=== PATIENT | male | born 1980 | race Caucasian/White ===

== ENCOUNTER 2018-08-22 11:11 | Inpatient (IN) | payer OTHER ==
[~2018-08-22] VITALS: Ht 167.6 cm; Wt 56.0 kg
[2018-08-22] VITALS (9 sets, daily range): BP systolic 101–127; BP diastolic 61–73; PULSE 61–82; RESP 13–26; Ht 167.6 cm; Wt 56.0 kg
[~2018-08-22 11:11] MED LIST: SULF1TAB31 PO
--- NOTE | 2018-08-22 11:23 | ERD ---
ER Documentation Chief Complaint Chief Complaint HPI This is a 38-year-old man with a history of end-stage kidney disease requiring h emodialysis today presents for right groin hemodialysis catheter replacement. 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 He has had no bleeding from the groin, no fevers or chills, no chest pain or shortness of breath. Patient was transported here by private ambulance from intermediate facility without complications. ROS All systems reviewed and are negative except as per history of present illness. Medications Home Meds Active Scripts Sulfamethoxazole/Trimethoprim* (Bactrim Ds* Tablet) 1 Each Tablet, 1 TAB PO BID for 7 Days, #14 TAB Prov:KISHOR SELF MD 05/21/18 Allergies Allergies: Coded Allergies: No Known Allergy (Unverified , 05/19/18) PMhx/Soc History of end-stage kidney disease hemodialysis dependent with a catheter in the right groin, anemia, history of drug abuse including heroin, hepatitis C, anxiety disorder History of Surgery: No Anesthesia Reaction: No Hx Neurological Disorder: No Hx Respiratory Disorders: No Hx Cardiac Disorders: Yes (HTN) Hx Psychiatric Problems: No Hx Alcohol Use: No Hx Substance Use: Yes (heroin) Hx Tobacco Use: Yes FmHx Family History: No diabetes Physical Exam Vitals Vital Signs Date Temp Pulse Resp B/P (MAP) Pulse Ox O2 O2 Flow FiO2 Time Delivery Rate 08/22/18 98.5 89 18 110/70 100 11:51 (83) 08/22/18 93 19 100 35 11:31 Per nurse's records Physical Exam Const: Anxious, afebrile Head: Atraumatic Eyes: Normal Conjunctiva ENT: Normal External Ears, Nose and Mouth. Neck: Full range of motion. No meningismus. Resp: Clear to auscultation bilaterally Cardio: Regular rate and rhythm, no murmurs Abd: Soft, non tender, non distended. Skin: No petechiae or rashes Back: No midline or flank tenderness Ext: No cyanosis, or edema Neur: Awake and alert, nonverbal due to tracheostomy tube able to write answers to questions and follow commands, moving all extremities, no facial asymmetry, pupils equal round reactive to light Psych: Anxious Result Diagram: 08/22/18 1146 08/22/18 1146 Results 24 hrs Laboratory Tests Test 08/22/18 11:46 White Blood Count 11.1 10^3/ul Red Blood Count 2.56 10^6/ul Hemoglobin 7.6 g/dl Hematocrit 23.9 % Mean Corpuscular Volume 93.4 fl Mean Corpuscular Hemoglobin 29.7 pg Mean Corpuscular Hemoglobin Concent 31.8 g/dl Red Cell Distribution Width 14.7 % Platelet Count 196 10^3/UL Mean Platelet Volume 8.9 fl Immature Granulocytes % 0.400 % Neutrophils % 75.7 % Lymphocytes % 12.3 % Monocytes % 7.6 % Eosinophils % 3.7 % Basophils % 0.3 % Nucleated Red Blood Cells % 0.0 /100WBC Immature Granulocytes # 0.040 10^3/ul Neutrophils # 8.4 10^3/ul Lymphocytes # 1.4 10^3/ul Monocytes # 0.8 10^3/ul Eosinophils # 0.4 10^3/ul Basophils # 0.0 10^3/ul Nucleated Red Blood Cells # 0.0 10^3/ul Prothrombin Time 14.3 Sec Prothrombin Time Ratio 1.1 INR International Normalized Ratio 1.10 Activated Partial Thromboplast Time 41.4 Sec Sodium Level 135 mmol/L Potassium Level 3.7 mmol/L Chloride Level 98 mmol/L Carbon Dioxide Level 22 mmol/L Anion Gap 15 Blood Urea Nitrogen 74 mg/dl Creatinine 7.51 mg/dl Est Glomerular Filtrat Rate mL/min 8 mL/min Glucose Level 96 mg/dl Calcium Level 9.8 mg/dl Total Bilirubin 0.0 mg/dl Direct Bilirubin 0.00 mg/dl Indirect Bilirubin 0.0 mg/dl Aspartate Amino Transf (AST/SGOT) 19 IU/L Alanine Aminotransferase (ALT/SGPT) 35 IU/L Alkaline Phosphatase 102 IU/L Troponin I Pending Total Protein 8.0 g/dl Albumin 3.8 g/dl Globulin 4.20 g/dl Albumin/Globulin Ratio 0.90 Lipase 46 U/L Procedures/MDM IV line was established patient was placed on telecommunication systems designer rhythm strip revealed a sinus rhythm at about 80 bpm with upright P and T waves. Patient was afebrile EKG performed, read by me: 86 bpm, normal sinus rhythm, normal axis, no acute ST segment changes, narrow QRS complex, with good R-wave progression in precordial leads. CBC reveals anemia with a hemoglobin of 7.6, electrolytes revealed elevated creatinine consistent with end-stage kidney disease, potassium was normal, INR was normal, I ordered hemodialysis catheter placement in radiology department under radiographic guidance Given the patient's level of anemia I ordered transfusion 2 units PRBC IV over 4 hours Patient will be admitted to [facility] for continued medical management and hemodialysis Departure Diagnosis: Primary Impression: Problem with dialysis access Encounter type: initial encounter Qualified Codes: T82.898A - Other specified complication of vascular prosthetic devices, implants and grafts, initial encounter Additional Impressions: End stage kidney disease Anemia Anemia type: unspecified type Qualified Codes: D64.9 - Anemia, unspecified Condition: Fair SOURAV CARBAJAL MD Aug 22, 2018 11:23
[2018-08-22] MEDS ORDERED: ALPR0.5T6 PO (13:20)
[2018-08-22] MEDS ORDERED: OLAN10TA7 PO (13:21)
[2018-08-22] MEDS ORDERED: ACET-2047 PO (13:21)
[2018-08-22] MEDS ORDERED: DOCU-144 PO (13:22)
[2018-08-22] MEDS ORDERED: FURO-110 PO (13:22)
[2018-08-22] MEDS ORDERED: MEGE40TA PO (13:22)
[2018-08-22] MEDS ORDERED: AMLO5TAB4 PO (13:23)
[2018-08-22] MEDS ORDERED: AMIN887L PO (13:24)
[2018-08-22] MEDS ORDERED: POLY17PO6 PO (13:25)
--- NOTE | 2018-08-22 13:53 | HP ---
ARVIN MAJOR 08/22/18 1353: Date/Time of Note Date/Time of Note DATE: 08/22/18 TIME: 13:48 Assessment/Plan VTE Prophylaxis Pharmacological prophylaxis: NA/contraindicated Pharm contraindication: bleeding Lines/Catheters IV Catheter Type (from Nrsg): Saline Lock Assessment/Plan Hospital Course 1. Malfunction right groin Spencer catheter. Skipped one session of hemodialysis 2. End end-stage renal disease on hemodialysis 3 times a week 3. VDRF with Tracheostomy 4. History of botulism 5. hx of drug abuse currently on methadone 6. hx if chronic kidney disease with last creatinine May 2018 3.4. 7. Severe normocytic anemia: Possibly secondary to chronic kidney disease, required blood transfusion 8. hypertension 9. Elevated wbc, source of infection is unknown, possibly lungs due to pt. respiratory insufficiency Assessment/Plan -per ER staff right groin Spencer cath. will be replaced -DVT prophylaxis SCD -GI prophylaxis famotidine twice daily -continue his current dose of methadone the nursing will send a request for the methadone clinic, check methadone patient is on - follow-up with anemia -pulmonary toilet - Result Diagram: 08/22/18 1146 08/22/18 1146 Results 24hrs Laboratory Tests Test 08/22/18 11:46 White Blood Count 11.1 #H Red Blood Count 2.56 #L Hemoglobin 7.6 L Hematocrit 23.9 L Mean Corpuscular Volume 93.4 Mean Corpuscular Hemoglobin 29.7 Mean Corpuscular Hemoglobin Concent 31.8 L Red Cell Distribution Width 14.7 H Platelet Count 196 # Mean Platelet Volume 8.9 Immature Granulocytes % 0.400 Neutrophils % 75.7 Lymphocytes % 12.3 L Monocytes % 7.6 Eosinophils % 3.7 Basophils % 0.3 Nucleated Red Blood Cells % 0.0 Immature Granulocytes # 0.040 H Neutrophils # 8.4 H Lymphocytes # 1.4 Monocytes # 0.8 Eosinophils # 0.4 Basophils # 0.0 Nucleated Red Blood Cells # 0.0 Prothrombin Time 14.3 Prothrombin Time Ratio 1.1 INR International Normalized Ratio 1.10 Activated Partial Thromboplast Time 41.4 H Sodium Level 135 Potassium Level 3.7 Chloride Level 98 Carbon Dioxide Level 22 Anion Gap 15 H Blood Urea Nitrogen 74 H Creatinine 7.51 H Est Glomerular Filtrat Rate mL/min 8 L Glucose Level 96 Calcium Level 9.8 Total Bilirubin 0.0 L Direct Bilirubin 0.00 Indirect Bilirubin 0.0 Aspartate Amino Transf (AST/SGOT) 19 Alanine Aminotransferase (ALT/SGPT) 35 Alkaline Phosphatase 102 Troponin I < 0.012 Total Protein 8.0 Albumin 3.8 Globulin 4.20 H Albumin/Globulin Ratio 0.90 Lipase 46 HPI/ROS Admit Date/Time Admit Date/Time Hx of Present Illness This is a 38-year-old man with a history of end-stage kidney disease, tracheostomy, history of drug abuse,, botulism, and anemia presents to ER for right groin hemodialysis catheter replacement. He has a tracheostomy tube in his mechanical ventilator dependent due to recent botulism and developed respiratory insufficiency. He has had no bleeding from the groin, no fevers or chills, no chest pain or shortness of breath. [facility]. ROS Subjective hx not possible: pt non-verbal PMH/Family/Social Past Medical History Medical History: hypertension, renal disease Coded Allergies: Sulfa (Sulfonamide Antibiotics) (Verified Allergy, Unknown, 08/22/18) Past Surgical History Past Surgical Hx: other (right groin Spencer cath, tracheostomy) Family History Significant Family History: lung disease, renal disease Social History Alcohol Use: occasionally Smoking Status: Never smoker Drug Use: heroin Exam/Review of Systems Vital Signs Vitals Vital Signs Date Temp Pulse Resp B/P (MAP) Pulse Ox O2 O2 Flow FiO2 Time Delivery Rate 08/22/18 73 19 100 35 13:27 08/22/18 98.5 110/70 11:51 (83) CHRISTOPHER GIRALDO MD 08/23/18 1626: Assessment/Plan Assessment/Plan Assessment/Plan seen and examined HD today: pt refused yesterday gram +bactermia> add vancomycin cw spencer ID consult will need permacath once bacterimia cleared Result Diagram: 08/22/18 1146 08/22/18 1146 PMH/Family/Social Past Medical History Coded Allergies: Sulfa (Sulfonamide Antibiotics) (Verified Allergy, Unknown, 08/22/18) ARVIN MAJOR Aug 22, 2018 13:53 CHRISTOPHER GIRALDO MD Aug 23, 2018 16:26
[2018-08-22] MEDS: AMLODIPINE 5 MG TAB PO SCH (14:00)
[2018-08-22] MEDS: DOCUSATE SODIUM 100 MG CAP PO SCH (14:00)
[2018-08-22] MEDS ORDERED: ACETAMINOPHEN 325 MG TAB PO PRN (14:00)
[2018-08-22] MEDS ORDERED: HEPARIN 1000 UNITS/ML 10 ML INJ CATHETER SCH (14:30)
[2018-08-22] MEDS ORDERED: LIDOCAINE 1% (MPF) 5 ML VIAL ONE (15:20)
[2018-08-22] MEDS ORDERED: HEPARIN 1000 UNITS/ML 10 ML INJ ONE (15:21)
--- NOTE | 2018-08-22 17:43 | NUR ---
HD order: Spoke to Margie sneed [facility]. Pt to have HD tomorrow. Confirmation # [id number]. Addendum: 08/22/18 at 1744 by JOSE MERLOS RN Pt requesting to have HD tomorrow, not today.
--- NOTE | 2018-08-22 18:15 | NUR ---
Received pt from ER. Pt refused photos. Has wounds that are healing, but no pressure ulcers. Pt stable. Call light in reach. IV intact. No complaints. AAOX4. Competent. Addendum: 08/22/18 at 2024 by JOSE MERLOS RN Ordered specialty air mattress. Will endorse to night CHON.
--- NOTE | 2018-08-22 20:18 | NUR ---
Pt signed consent for HD. Spoke to Dr. Elaine on phone. See new orders for diet and methadone. Faxed over methadone orders to in hospital pharmacy, per pharmacist request.
[2018-08-22] MEDS: POLYETHYLENE GLYCOL 17 GM PACKET PO SCH (21:00)
[2018-08-22] MEDS: FAMOTIDINE 20 MG INJ IV SCH (21:00)
[2018-08-22] MEDS: MEGESTROL 40 MG TAB PO SCH (21:00)
[2018-08-22] MEDS: ALPRAZOLAM 0.25 MG TAB PO PRN (22:39)
[2018-08-23] VITALS (35 sets, daily range): BP systolic 109–140; BP diastolic 67–99; PULSE 66–84; RESP 11–22
--- NOTE | 2018-08-23 06:06 | NUR ---
Redness and swollen noted around trach stoma,pt c/o of pain when suction,RN Tomasa aware. Wound consult is ordered.
--- NOTE | 2018-08-23 06:27 | NUR ---
EOSS PT AAO x4. No s/s of respiratory distress, pain or discomfort. Pt non-compliant with care. Pt refused to be reposition, wound assessment and care, bedtime medication and morning care. Pt stated " An assessment was performed by the other nurse". Explained to him that the assessment needs to be done every shift. Made charge nurse aware. Noted redness around trach site, pt refused picture. No acute changes. Provided education on pressure ulcer prevention. Pt verbalize understanding.
[2018-08-23] MEDS: DOCUSATE SODIUM 100 MG CAP PO SCH (08:52)
[2018-08-23] MEDS: METHADONE 10 MG TAB PO SCH (08:55)
[2018-08-23] MEDS: AMLODIPINE 5 MG TAB PO SCH (08:57)
[2018-08-23] MEDS: POLYETHYLENE GLYCOL 17 GM PACKET PO SCH ×3 (08:58→20:31)
[2018-08-23] MEDS: OLANZAPINE 5 MG TAB PO SCH (08:58)
[2018-08-23] MEDS: FUROSEMIDE 20 MG TAB PO SCH (09:00)
[2018-08-23] MEDS: MEGESTROL 40 MG TAB PO SCH ×3 (09:00→20:31)
--- NOTE | 2018-08-23 10:26 | NUR ---
Pt refused to be seen by wound consult nurse, and refused to be reposition , he is able to move extremities.
--- NOTE | 2018-08-23 11:20 | NUR ---
WOUND CONSULTATION NOTE: 38-year-old male with history of IV drug use and heroin use presented for central IV access exchange. Patient was recently admitted to [facility] in May 2018 and refused wound care assessment, wound care at that time was advised per photo documentation for skin popping abscesses due to IV drug use. On this presentation, patient has been declining multiple treatment and assessment modalities, as well as any photograph documentation for further assessment. On exam, patient is dressed in sweat pants, trach to vent, when asked to evaluate his wounds, patient wrote on paper "Later" Discussed with primary RN Angi, we will continue to follow. Please contact the wound care dept for any additional questions or encounters. Thank you Leanne Tan
--- NOTE | 2018-08-23 12:11 | PN ---
ARVIN MAJOR 08/23/18 1211: Date/Time of Note Date/Time of Note DATE: 08/23/18 TIME: 12:09 Assessment/Plan VTE Prophylaxis Risk score (from [facility])>0 risk: 2 SCD applied (from [facility]): No SCD contraindicated: patient refusal Pharmacological prophylaxis: NA/contraindicated Pharm contraindication: bleeding Lines/Catheters IV [facility]ter Type [facility]from [facility] Peripheral IV Assessment/Plan Hospital Course 1. Malfunction right groin Dorene catheter. Skipped one session of hemodialysis 2. End end-stage renal disease on hemodialysis 3 times a week 3. VDRF with Tracheostomy 4. History of botulism 5. hx of drug abuse currently on methadone 6. hx if chronic kidney disease with last creatinine May 2018 3.4. 7. Severe normocytic anemia: Possibly secondary to chronic kidney disease, required blood transfusion 8. hypertension 9. Elevated wbc, source of infection is unknown, possibly lungs due to pt. respiratory insufficiency Assessment/Plan -Dorene replaced -DVT prophylaxis SCD -GI prophylaxis famotidine twice daily -continue his current dose of methadone 70 mg - follow-up with anemia -pulmonary toilet Result Diagram: 08/23/18 1059 08/22/18 1146 Results 24hrs Laboratory Tests Test 08/23/18 10:59 White Blood Count 9.3 Red Blood Count 3.07 L Hemoglobin 9.4 #L Hematocrit 28.6 L Mean Corpuscular Volume 93.2 Mean Corpuscular Hemoglobin 30.6 Mean Corpuscular Hemoglobin Concent 32.9 Red Cell Distribution Width 14.9 H Platelet Count 228 Mean Platelet Volume 9.0 Immature Granulocytes % 0.500 H Neutrophils % 76.6 Lymphocytes % 13.3 L Monocytes % 6.3 Eosinophils % 3.0 Basophils % 0.3 Nucleated Red Blood Cells % 0.0 Immature Granulocytes # 0.050 H Neutrophils # 7.1 Lymphocytes # 1.2 Monocytes # 0.6 Eosinophils # 0.3 Basophils # 0.0 Nucleated Red Blood Cells # 0.0 Sodium Level 136 Potassium Level 4.4 Chloride Level 99 Carbon Dioxide Level 21 Anion Gap 16 H Blood Urea Nitrogen 81 H Creatinine 7.60 H Est Glomerular Filtrat Rate mL/min 8 L Glucose Level 103 Calcium Level 9.8 Subjective 24 Hr Interval Summary Gastrointestinal: pain (constipation 2 days) Exam/Review of Systems Vital Signs Vitals Vital Signs Date Temp Pulse Resp B/P (MAP) Pulse Ox O2 O2 Flow FiO2 Time Delivery Rate 08/23/18 98.0 75 20 128/74 95 11:39 (92) 08/23/18 35 09:45 08/23/18 Mechanical 03:56 Ventilator Intake and Output 08/22/18 08/22/18 08/23/18 1414:59 22:59 06:59 IntakeIntake Total 350 ml 800 ml OutputOutput Total 200 ml 300 ml BalanceBalance 350 ml -200 ml 500 ml Exam right IJ Q, cath Constitutional: alert, oriented Head: normocephalic Eyes: nl conjunctiva ENMT: nl external ears & nose Neck: other (tracheostomy) Respiratory: diminished breath sounds Cardiovascular: regular rate and rhythm Gastrointestinal: soft Medications Medications Current Medications Acetaminophen (Tylenol Tab) 650 mg Q8 PRN PO MILD PAIN(1-3)OR ELEVATED TEMP; Start 08/22/18 at 14:00 Alprazolam (Xanax) 0.5 mg Q4H PRN PO ANXIETY Last administered on 08/22/18at 22:39; Admin Dose 0.5 MG; Start 08/22/18 at 14:00 Amlodipine Besylate (Norvasc) 5 mg DAILY PO Last administered on 08/23/18at 08:57; Admin Dose 5 MG; Start 08/22/18 at 14:00 Docusate Sodium (Colace) 100 mg DAILY PO Last administered on 08/23/18at 08:52; Admin Dose 100 MG; Start 08/22/18 at 14:00 Furosemide (Lasix) 20 mg DAILY PO ; Start 08/23/18 at 09:00 Megestrol Acetate (Megace) 40 mg BID PO ; Start 08/22/18 at 21:00 Olanzapine (Zyprexa) 10 mg DAILY PO ; Start 08/23/18 at 09:00 Polyethylene Glycol (Miralax) 17 gm BID PO ; Start 08/22/18 at 21:00 Famotidine (Pepcid Iv) 20 mg Q24H IV ; Start 08/22/18 at 21:00 Heparin Sodium (Porcine) (Heparin (1000 Units/ml)) 4,000 unit AFTER DIALYSIS CATHETER ; Start 08/22/18 at 14:30 Methadone HCl (Methadone) 80 mg DAILY PO Last administered on 1/19/19at 08:55; Admin Dose 80 MG; Start 08/23/18 at 09:00 CHRISTOPHER GIRALDO MD 08/23/18 1630: Assessment/Plan Assessment/Plan Assessment/Plan pt seen and examined with PREPARATION DEPARTMENT SUPERVISOR HOLD DC PT HAS DORENE GRAM +BACTERMIA NEEDD IV VANCO Result Diagram: 08/23/18 1059 08/22/18 1146 ARVIN MAJOR Aug 23, 2018 12:11 CHRISTOPHER GIRALDO MD Aug 23, 2018 16:30
--- NOTE | 2018-08-23 12:14 | DS ---
Date/Time of Note Date/Time of Note DATE: 08/23/18 TIME: 12:14 Discharge Summary Admission/Discharge Info Admit Date/Time Aug 22, 2018 at 12:27 Discharge Date/Time Patient Condition: Stable Hx of Present Illness This is a 38-year-old man with a history of end-stage kidney disease, tracheostomy, history of drug abuse,, botulism, and anemia presents to ER for right groin hemodialysis catheter replacement. He has a tracheostomy tube in his mechanical ventilator dependent due to recent botulism and developed respiratory insufficiency. He has had no bleeding from the groin, no fevers or chills, no chest pain or shortness of breath. Patient was transfereed from [facility] facility without complications. Hospital Course 1. Malfunction right groin Sonny catheter. Skipped one session of hemodialysis 2. End end-stage renal disease on hemodialysis 3 times a week 3. VDRF with Tracheostomy 4. History of botulism 5. hx of drug abuse currently on methadone 6. hx if chronic kidney disease with last creatinine May 2018 3.4. 7. Severe normocytic anemia: Possibly secondary to chronic kidney disease, required blood transfusion 8. hypertension 9. Elevated wbc, source of infection is unknown, possibly lungs due to pt. r espiratory insufficiency Home Meds Reported Medications Polyethylene Glycol* (Miralax*) 17 Gm Powd.pack, 17 GM PO BID, #60 PACKET 08/22/18 Amino Acids/Protein Hydrolys (Pro-Stat 64 Liquid) 887 Ml Liquid, 30 ML PO BID 08/22/18 Amlodipine Besylate* (Norvasc*) 5 Mg Tablet, 5 MG PO DAILY, TAB HOLD FOR SBP<110 OR PRIOR TO HD TX 08/22/18 Docusate Sodium* (Colace*) 100 Mg Capsule, 100 MG PO DAILY, #30 CAP 08/22/18 Megestrol Acetate* (Megace*) 40 Mg Tab, 40 MG PO BID, TAB 08/22/18 Furosemide* (Lasix*) 20 Mg Tablet, 20 MG PO DAILY, TAB 08/22/18 Acetaminophen* (Acetaminophen*) 650 Mg Tablet, 650 MG PO Q8 PRN for PAIN AND OR ELEVATED TEMP, #30 TAB 08/22/18 Olanzapine* (Zyprexa*) 10 Mg Tablet, 10 MG PO DAILY, #30 TAB 08/22/18 Alprazolam* (Alprazolam*) 0.5 Mg Tablet, 0.5 MG PO Q4 PRN for ANXIETY, TAB 08/22/18 Discontinued Reported Medications Amlodipine Besylate* (Norvasc*) 5 Mg Tablet, 5 MG PO DAILY, TAB 08/22/18 Discontinued Scripts Sulfamethoxazole/Trimethoprim* (Bactrim Ds* Tablet) 1 Each Tablet, 1 TAB PO BID for 7 Days, #14 TAB Prov:KISHOR SELF MD 05/21/18 Follow-up Plan [facility] Primary Care Provider Care Physician No Primary Time spent on discharge: < 30 minutes Pending Labs Laboratory Tests Test 08/23/18 10:59 White Blood Count 9.3 10^3/ul (4.8-10.8) Red Blood Count 3.07 10^6/ul (4.70-6.10) Hemoglobin 9.4 g/dl (14.0-18.0) Hematocrit 28.6 % (42.0-52.0) Mean Corpuscular Volume 93.2 fl (82.0-101.0) Mean Corpuscular Hemoglobin 30.6 pg (29.0-33.0) Mean Corpuscular Hemoglobin Concent 32.9 g/dl (32.0-37.0) Red Cell Distribution Width 14.9 % (11.5-14.5) Platelet Count 228 10^3/UL (140-415) Mean Platelet Volume 9.0 fl (7.4-10.4) Immature Granulocytes % 0.500 % (0.001-0.429) Neutrophils % 76.6 % (39.0-77.0) Lymphocytes % 13.3 % (15.0-51.0) Monocytes % 6.3 % (0.0-11.0) Eosinophils % 3.0 % (0.0-7.0) Basophils % 0.3 % (0.0-2.0) Nucleated Red Blood Cells % 0.0 /100WBC (0.0-0.0) Immature Granulocytes # 0.050 10^3/ul (0.0-0.031) Neutrophils # 7.1 10^3/ul (1.6-7.5) Lymphocytes # 1.2 10^3/ul (0.8-2.9) Monocytes # 0.6 10^3/ul (0.3-0.9) Eosinophils # 0.3 10^3/ul (0.0-0.5) Basophils # 0.0 10^3/ul (0.0-0.1) Nucleated Red Blood Cells # 0.0 10^3/ul (0.0-0.0) Sodium Level 136 mmol/L (135-144) Potassium Level 4.4 mmol/L (3.5-5.1) Chloride Level 99 mmol/L (97-110) Carbon Dioxide Level 21 mmol/L (21-31) Anion Gap 16 (5-13) Blood Urea Nitrogen 81 mg/dl (7-20) Creatinine 7.60 mg/dl (0.61-1.24) Est Glomerular Filtrat Rate mL/min 8 mL/min (>60) Glucose Level 103 mg/dl (70-220) Calcium Level 9.8 mg/dl (8.4-10.2) ARVIN MAJOR Aug 23, 2018 12:14
[2018-08-23] MEDS: ALPRAZOLAM 0.25 MG TAB PO PRN ×3 (12:42→21:24)
--- NOTE | 2018-08-23 12:49 | NUR ---
TATY NOTE: DISCHARGE S/W pt SNF, [facility] (P:[phone], F:[phone]) regarding pt transfer back. Inquiry faxed per request of product safety administrator. Folding Machine Operator to f/u with taty. Hawk Shoemaker RN CM [phone] Addendum: 08/23/18 at 1326 by JEFRY SHOEMAKER CM Transportation arranged via [facility] (P:[phone]) placed on will-call (trip#[id number]) as pt will have dialysis prior to d/c. Addendum: 08/23/18 at 1416 by JEFRY SHOEMAKER CM [facility] informed of pt d/c after dialysis.
--- NOTE | 2018-08-23 13:22 | NUR ---
Nutrition consult: Admitted for ESKD/anemia. PMH end-stage kidney disease, tracheostomy, history of drug abuse, botulism, and anemia. Per pt, pt will be DC tonight. Pt appeared very cachetic but reported good appetite. Pt also wanted something to drink. RD provided renal oral supplements to help with wound healing. Rec adding MVI and vit C for wounds.
[2018-08-23] MEDS ORDERED: VANCOMYCIN IV PER PHARMACY XX SCH (16:30)
--- NOTE | 2018-08-23 16:47 | NUR ---
VANCOMYCIN PER RX 38 yo MALE Allergy: Sulfa 56 56KG CC: -Malfunction right groin Sonny catheter -Gram positive bacteremia Labs: WBC 9.3 BUN and creatinine 81/7.6 A/P: Vancomycin 1000mg x 1 after HD. Pharmacy will follow with subsequent doses.
[2018-08-23] MEDS ORDERED: HEPARIN 1000 UNITS/ML 10 ML INJ CATHETER ONE (18:30)
--- NOTE | 2018-08-23 18:50 | NUR ---
pt is a/o x4, cancel the discharge order , pt has blood culture positive therefore he needs get the antibiotic treatment . pt is doing the HD now , pt still refuse to be reposition and don't want to be check on his skin. no other complain at this time. resting in bed.
[2018-08-23] MEDS ORDERED: VANCOMYCIN 1 GM 250 ML IVPB ONE (20:00)
[2018-08-23] MEDS: FAMOTIDINE 20 MG INJ IV SCH (20:22)
[2018-08-23] MEDS ORDERED: BISACODYL 10 MG SUPP PR PRN (21:54)
[2018-08-24] VITALS (23 sets, daily range): BP systolic 107–150; BP diastolic 59–74; PULSE 63–96; RESP 10–21
--- NOTE | 2018-08-24 07:00 | NUR ---
Pt a/a/ox4, agitated and anxious. VS stable, afebrile. Xanax given x2. Pt refused to be assessed for the wound and dressing changed, non compliant. He throw things out when he could not wait for RT to change the tubing. Report given to CHON Perez am nurse and continue care plan.
[2018-08-24] MEDS: ALPRAZOLAM 0.25 MG TAB PO PRN ×3 (07:16→20:48)
[2018-08-24] MEDS: FUROSEMIDE 20 MG TAB PO SCH (09:00)
[2018-08-24] MEDS: AMLODIPINE 5 MG TAB PO SCH (09:00)
[2018-08-24] MEDS: OLANZAPINE 5 MG TAB PO SCH (09:00)
[2018-08-24] MEDS: DOCUSATE SODIUM 100 MG CAP PO SCH (09:00)
[2018-08-24] MEDS: POLYETHYLENE GLYCOL 17 GM PACKET PO SCH ×2 (09:00→20:47)
[2018-08-24] MEDS: MEGESTROL 40 MG TAB PO SCH ×2 (09:00→21:00)
[2018-08-24] MEDS: METHADONE 10 MG TAB PO SCH (09:06)
--- NOTE | 2018-08-24 14:02 | PN ---
Date/Time of Note Date/Time of Note DATE: 08/24/18 TIME: 13:41 Assessment/Plan VTE Prophylaxis Risk score (from Ns)>0 risk: 2 [place] [facility] [place] contraindicated: patient refusal Pharmacological prophylaxis: NA/contraindicated Pharm contraindication: bleeding Lines/Catheters IV Catheter Type (from [facility]): Peripheral IV Assessment/Plan Hospital Course 1. Malfunction right groin Sonny catheter. Skipped one session of hemodialysis 2. End end-stage renal disease on hemodialysis 3 times a week 3. VDRF with Tracheostomy 4. History of botulism 5. hx of drug abuse currently on methadone 6. hx if chronic kidney disease with last creatinine May 2018 3.4. 7. Severe normocytic anemia: Possibly secondary to chronic kidney disease, required blood transfusion 8. hypertension 9. SIRS, blood culture are gram positive, on Vancomycin 10 Hx of Hep. B Assessment/Plan -c/w vancomycin -pt need replacement of temp. cath on permanent after bl. cul are negative. -DVT prophylaxis SCD -GI prophylaxis famotidine twice daily -continue his current dose of methadone 80 mg - follow-up with anemia -pulmonary toilet Result Diagram: 08/23/18 1059 08/23/18 1059 Results 24hrs Laboratory Tests Test 08/23/18 17:12 Hepatitis B Surface Antigen NEGATIVE Hepatitis B Surface Antibody POSITIVE H Subjective 24 Hr Interval Summary Gastrointestinal: pain Exam/Review of Systems Vital Signs Vitals Vital Signs Date Temp Pulse Resp B/P (MAP) Pulse Ox O2 O2 Flow FiO2 Time Delivery Rate 08/24/18 63 12:31 08/24/18 98.1 18 119/72 99 12:15 (88) 08/24/18 30 11:35 08/23/18 Mechanical 17:54 Ventilator T Tube Intake and Output 08/23/18 08/23/18 08/24/18 1515:00 23:00 07:00 IntakeIntake Total 250 ml 550 ml 720 ml OutputOutput Total 400 ml 2600 ml 450 ml BalanceBalance -150 ml -2050 ml 270 ml Exam Constitutional: alert, oriented ENMT: other (tracheostomy) Neck: supple Cardiovascular: regular rate and rhythm Gastrointestinal: soft Genitourinary - Male: CVA tenderness; No nl penis, No nl scrotum, No discharge, No other Medications Medications Current Medications Acetaminophen (Tylenol Tab) 650 mg Q8 PRN PO MILD PAIN(1-3)OR ELEVATED TEMP; Start 08/22/18 at 14:00 Alprazolam (Xanax) 0.5 mg Q4H PRN PO ANXIETY Last administered on 08/24/18 07:16; Admin Dose 0.5 MG; Start 08/22/18 at 14:00 Amlodipine Besylate (Norvasc) 5 mg DAILY PO Last administered on 08/23/18 08:57; Admin Dose 5 MG; Start 08/22/18 at 14:00 Docusate Sodium (Colace) 100 mg DAILY PO Last administered on 08/23/18 08:52; Admin Dose 100 MG; Start 08/22/18 at 14:00 Furosemide (Lasix) 20 mg DAILY PO ; Start 08/23/18 at 09:00 Megestrol Acetate (Megace) 40 mg BID PO ; Start 08/22/18 at 21:00 Olanzapine (Zyprexa) 10 mg DAILY PO ; Start 08/23/18 at 09:00 Polyethylene Glycol (Miralax) 17 gm BID PO ; Start 08/22/18 at 21:00 Famotidine (Pepcid Iv) 20 mg Q24H IV Last administered on 08/23/18at 20:22; Admin Dose 20 MG; Start 08/22/18 at 21:00 Methadone HCl (Methadone) 80 mg DAILY PO Last administered on 08/24/18at 09:06; Admin Dose 80 MG; Start 08/23/18 at 09:00 Vancomycin HCl (Vanco Iv Per Pharmacy) VANCOMYCIN PER PHARMACY PER PROTOCOL XX ; Start 08/23/18 at 16:30 Bisacodyl (Dulcolax Supp) 10 mg DAILY PRN [place] CONSTIPATION Last administered on 08/23/18 22:03; Admin Dose 10 MG; Start 08/23/18 at 21:54 ARVIN MAJOR Aug 24, 2018 13:51
--- NOTE | 2018-08-24 14:46 | CONS ---
Date/Time of Note Date/Time of Note DATE: 08/24/18 TIME: 14:32 Assessment/Plan Assessment/Plan Hospital Course ID INITIAL NOTE => Please refer to Dr. Robles full consult note dictation pending code official from today. CURRENT ABX: DAY #Vanco IV 08/23/18 1059 08/23/18 1059 24H INTERVAL SUMMARY * No fevers, VSS, lethargic, generalized weakness, noncommunicative on the Vent MICRO * 08/22/18 (+)MRSA Nares * 08/22/18 BCX (+) BLOOD CULTURE Preliminary BCULT GRAM BOTTLE 1 Gram positive cocci in pairs and clusters . seen on gram stain of the broth Organism 1 COAGULASE NEGATIVE STAPH PHYSICAL EXAMINATION: GENERAL: Afebrile, VSS, lethargic w/generalized weakness HEENT: AT, NC, anicteric, moist oral membranes NECK: Supple, trach -> Secure to patient CHEST: Equal chest rise bilaterally, without dyspnea on observation HEART: Pulse RRR ABDOMEN: Soft EXTREMITIES: Warm, dry ==healing skin wounds SKIN: No rash, no diaphoresis ID ASSESSMENT 38 yo M admit with: 1. SIRS on admission w/Tmax 98.9, HR 95, B/P 90/60, WBC 11.1 due to #2 2. Suspected HD Line Sepsis w/ (+)CoNS * 08/22/18 BCX (+) BLOOD CULTURE Preliminary BCULT GRAM BOTTLE 1 Gram positive cocci in pairs and clusters . seen on gram stain of the broth Organism 1 COAGULASE NEGATIVE STAPH 3. Malfunction right groin Sonny catheter. Skipped one session of h emodialysis 4. End end-stage renal disease on hemodialysis 3 times a week 5. VDRF with Tracheostomy 5. History of botulism 6. 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 Severe normocytic anemia: Possibly secondary to chronic kidney disease, required blood transfusion 8. Hypertension 9. Former Tobaccoism 10. Healing skin abscesses (+)MRSA Nares ->Bactroban onboard ABX ALLERGIES: SULFA INVASIVES: PIV CURRENT ABX: DAY #= Vanco IV ID RECOMMENDATIONS/PLAN: Continue Vanco IV -- Repeat BCx next HD . Result Diagram: 08/23/18 1059 08/23/18 1059 Results 24hrs Laboratory Tests Test 08/23/18 17:12 Hepatitis B Surface Antigen NEGATIVE Hepatitis B Surface Antibody POSITIVE H Consultation Date/Type/Reason Admit Date/Time Aug 22, 2018 at 12:27 Initial Consult Date Exam/Review of Systems Vital Signs Vitals Vital Signs Date Temp Pulse Resp B/P (MAP) Pulse Ox O2 O2 Flow FiO2 Time Delivery Rate 08/24/18 63 12:31 08/24/18 98.1 18 119/72 99 12:15 (88) 08/24/18 30 11:35 08/23/18 Mechanical 17:54 Ventilator T Tube Intake and Output 08/23/18 08/23/18 08/24/18 1515:00 23:00 07:00 IntakeIntake Total 250 ml 550 ml 720 ml OutputOutput Total 400 ml 2600 ml 450 ml BalanceBalance -150 ml -2050 ml 270 ml Medications Medications Current Medications Acetaminophen (Tylenol Tab) 650 mg Q8 PRN PO MILD PAIN(1-3)OR ELEVATED TEMP; Start 08/22/18 at 14:00 Alprazolam (Xanax) 0.5 mg Q4H PRN PO ANXIETY Last administered on 08/24/18at 13:56; Admin Dose 0.5 MG; Start 08/22/18 at 14:00 Amlodipine Besylate (Norvasc) 5 mg DAILY PO Last administered on 08/23/18at 08:57; Admin Dose 5 MG; Start 08/22/18 at 14:00 Docusate Sodium (Colace) 100 mg DAILY PO Last administered on 08/23/18at 08:52; Admin Dose 100 MG; Start 08/22/18 at 14:00 Furosemide (Lasix) 20 mg DAILY PO ; Start 08/23/18 at 09:00 Megestrol Acetate (Megace) 40 mg BID PO ; Start 08/22/18 at 21:00 Olanzapine (Zyprexa) 10 mg DAILY PO ; Start 08/23/18 at 09:00 Polyethylene Glycol (Miralax) 17 gm BID PO ; Start 08/22/18 at 21:00 Methadone HCl (Methadone) 80 mg DAILY PO Last administered on 08/24/18at 09:06; Admin Dose 80 MG; Start 08/23/18 at 09:00 Vancomycin HCl (Vanco Iv Per Pharmacy) VANCOMYCIN PER PHARMACY PER PROTOCOL XX ; Start 08/23/18 at 16:30 Bisacodyl (Dulcolax Supp) 10 mg DAILY PRN ID CONSTIPATION Last administered on 08/23/18at 22:03; Admin Dose 10 MG; Start 08/23/18 at 21:54 Epoetin Aramis (Epogen (Esrd)) 4,000 units MoWeFr@17 SC ; Start 08/25/18 at 17:00 Famotidine (Pepcid) 20 mg DAILY PO ; Start 08/25/18 at 09:00 Mupirocin (Bactroban) 1 applic BID TOP ; Start 08/24/18 at 21:00 EMILIA MADERA NP Aug 24, 2018 14:42
--- NOTE | 2018-08-24 15:33 | NUR ---
Got a Call from [facility] to get blood culture from Pt's dialysis line as well, however per policy RNs are not able to draw blood from the HD line.
--- NOTE | 2018-08-24 15:39 | NUR ---
Called [facility] for HD 08/25/18, confirmation number is [id number]
--- NOTE | 2018-08-24 15:50 | CONS ---
DATE OF ADMISSION: 08/22/2018 DATE OF CONSULTATION: 08/24/2018 TYPE OF CONSULTATION: Infectious Disease. REASON FOR CONSULTATION: Antibiotic management. HISTORY OF PRESENT ILLNESS: Parminder Donaldson is a 38-year-old male with numerous problems including end -stage renal disease who comes in with a number of problems and is being seen for antibiotic manageme nt. Past problems include: 1. End-stage renal disease on hemodialysis with a catheter in the right groin. 2. History of drug abuse including heroin. 3. Hepatitis C. 4. Anemia. 5. Hypertension. 6. Anxiety disorder. 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 On admission , his white count was 11.1, H and H 7.6 and 23.9, platelet count 196,000. BUN and creatinine 74/7.51 . An IV line was established. His white count was 11.1 with 76% polys. His blood culture grew out coag-negative staph. He had uncomplicated placement of a 15 cm Sonny catheter in the right interna l jugular vein. As noted, there was malfunction of the right groin catheter, a history of drug abuse and is currently on methadone, quit and replaced DVT prophylaxis. The patient has mechanical ventil ator dependent due to recent botulism and developed respiratory insufficiency and he was transferred from assisted facility as noted. PAST MEDICAL HISTORY: Operations as outlined. FAMILY HISTORY: Noncontributory. SOCIAL HISTORY: He does not smoke, drink or abuse drugs. ALLERGIES: NONE TO PENICILLIN, SULFA OR FOODS. MEDICATIONS: Per chart. REVIEW OF SYSTEMS: As per HPI. PHYSICAL EXAMINATION: GENERAL: The patient is anxious, afebrile. SKIN: Without generalized rash. HEENT: Within normal limits. NECK: With tracheostomy in place. HEART: Without murmur or gallop. ABDOMEN: Soft, nontender, without organosplenomegaly or masses. EXTREMITIES: Without cyanosis, clubbing, or edema. RECTAL AND GENITAL: Deferred. NEUROLOGIC: No focal neurological abnormality. ANCILLARY LABORATORY DATA: White count on the was 9.3. IMPRESSION AND PLAN: We will continue him on vancomycin. He probably had sepsis to line sepsis seco ndary to the other catheter, which was removed, and he should probably be treated for a 2-week course on dialysis with vancomycin. I will dictate my findings to the hospitalist, actually to probably Dr Luis Elaine. Dictated By: RIP ESTEVEZ MD, JD/AIYANA Conf#: [id number] DID#: [id number] CC: CHRISTOPHER ELAINE;*EndCC*
[2018-08-24] MEDS ORDERED: HEPARIN 1000 UNITS/ML 10 ML INJ CATHETER SCH (16:00)
--- NOTE | 2018-08-24 18:16 | NUR ---
EOSS: Pt is stable, VS are WNL. Pt is noncompliant, refusing wound care , medication, turning. anxious most of the time. Low air loss mattress was placed. Will endorse the care to cobol programmer nurse.
[2018-08-24] MEDS: MUPIROCIN 2% 22 GM OINT TOP SCH (20:48)
[2018-08-25] VITALS (22 sets, daily range): BP systolic 120–140; BP diastolic 67–85; PULSE 59–88; RESP 12–23
[2018-08-25] MEDS: ALPRAZOLAM 0.25 MG TAB PO PRN ×3 (05:33→21:04)
--- NOTE | 2018-08-25 05:47 | NUR ---
EOSS: Pt A&O x 4. VSS. Xanax administered X 2 for anxiety. Patienti is refusing wound assessment, wound treatment, and WCN participation. No current s/s of distress, resting in bed comfortably. Fall precautions maintained. Hourly rounding performed. Call light within reach; instructed pt to call for assistance as needed. Pt clean and dry; all needs and concerns attended to. Will endorse pt to AM RN for continuity of care.
[2018-08-25] MEDS: FAMOTIDINE 20 MG TAB PO SCH (09:00)
[2018-08-25] MEDS: OLANZAPINE 5 MG TAB PO SCH (09:00)
[2018-08-25] MEDS: MEGESTROL 40 MG TAB PO SCH ×2 (09:00→21:00)
[2018-08-25] MEDS: FUROSEMIDE 20 MG TAB PO SCH (09:00)
[2018-08-25] MEDS: AMLODIPINE 5 MG TAB PO SCH (09:00)
[2018-08-25] MEDS: DOCUSATE SODIUM 100 MG CAP PO SCH (09:20)
[2018-08-25] MEDS: POLYETHYLENE GLYCOL 17 GM PACKET PO SCH ×2 (09:20→21:00)
[2018-08-25] MEDS: MUPIROCIN 2% 22 GM OINT TOP SCH ×2 (09:20→21:00)
[2018-08-25] MEDS: METHADONE 10 MG TAB PO SCH (09:20)
--- NOTE | 2018-08-25 10:00 | NUR ---
Pt refusing skin assessment, repositioning, and refusing skin pictures. Aggressive and defensive about talking about his skin.
--- NOTE | 2018-08-25 11:20 | PN ---
Date/Time of Note Date/Time of Note DATE: 08/25/18 TIME: 11:18 Assessment/Plan VTE Prophylaxis Risk score (from Ns)>0 risk: 2 [place] [facility] [place] contraindicated: low risk/ambulating Pharmacological prophylaxis: NA/contraindicated Pharm contraindication: low risk/ambulating Lines/Catheters IV Catheter Type (from [facility]): Peripheral IV Urinary Cath still in place: No Assessment/Plan Hospital Course 38 y/o with 1. Malfunction right groin Spencer catheter. Skipped one session of hemodialysis nows with CONS bacterimia 2. End end-stage renal disease on hemodialysis 3 times a week 3. VDRF with Tracheostomy 4. History of botulism 5. hx of drug abuse currently on methadone 6. hx if chronic kidney disease with last creatinine May 2018 3.4. 7. Severe normocytic anemia: Possibly secondary to chronic kidney disease, re quired blood transfusion 8. hypertension 9. SIRS, blood culture are gram positive, on Vancomycin 10 Hx of Hep. B Assessment/Plan -c/w vancomycin -pt need replacement of temp. cath on permanent after bl. cul are negative. possibly tmw?? -DVT prophylaxis SCD -GI prophylaxis famotidine twice daily -continue his current dose of methadone 80 mg - f/u id Recs Result Diagram: 08/25/18 0557 08/23/18 1059 Results 24hrs Laboratory Tests Test 08/25/18 05:57 White Blood Count 7.6 Red Blood Count 3.11 L Hemoglobin 9.5 L Hematocrit 29.5 L Mean Corpuscular Volume 94.9 Mean Corpuscular Hemoglobin 30.5 Mean Corpuscular Hemoglobin Concent 32.2 Red Cell Distribution Width 14.7 H Platelet Count 214 Mean Platelet Volume 9.8 Immature Granulocytes % 1.300 H Neutrophils % 59.3 Lymphocytes % 23.6 Monocytes % 11.1 H Eosinophils % 4.3 Basophils % 0.4 Nucleated Red Blood Cells % 0.0 Immature Granulocytes # 0.100 H Neutrophils # 4.5 Lymphocytes # 1.8 Monocytes # 0.8 Eosinophils # 0.3 Basophils # 0.0 Nucleated Red Blood Cells # 0.0 Subjective 24 Hr Interval Summary Free Text/Dictation pt refused hd today repeat bld cx pending Exam/Review of Systems Vital Signs Vitals Vital Signs Date Temp Pulse Resp B/P (MAP) Pulse Ox O2 O2 Flow FiO2 Time Delivery Rate 08/25/18 76 13 100 30 09:53 08/25/18 98.0 122/71 08:12 (88) 08/23/18 Mechanical 17:54 Ventilator T Tube Intake and Output 08/24/18 08/24/18 08/25/18 1515:00 23:00 07:00 IntakeIntake Total 800 ml 900 ml OutputOutput Total 600 ml 700 ml BalanceBalance 200 ml 200 ml Exam Constitutional: alert, oriented ENMT: other (tracheostomy) Neck: supple Cardiovascular: regular rate and rhythm Gastrointestinal: soft Genitourinary - Male: CVA tenderness; No nl penis, No nl scrotum, No discharge, No other rt neck spencer Medications Medications Current Medications Acetaminophen (Tylenol Tab) 650 mg Q8 PRN PO MILD PAIN(1-3)OR ELEVATED TEMP; Start 08/22/18 at 14:00 Alprazolam (Xanax) 0.5 mg Q4H PRN PO ANXIETY Last administered on 08/25/18at 05:33; Admin Dose 0.5 MG; Start 08/22/18 at 14:00 Amlodipine Besylate (Norvasc) 5 mg DAILY PO Last administered on 08/23/18at 08:57; Admin Dose 5 MG; Start 08/22/18 at 14:00 Docusate Sodium (Colace) 100 mg DAILY PO Last administered on 08/25/18at 09:20; Admin Dose 100 MG; Start 08/22/18 at 14:00 Furosemide (Lasix) 20 mg DAILY PO ; Start 08/23/18 at 09:00 Megestrol Acetate (Megace) 40 mg BID PO ; Start 08/22/18 at 21:00 Olanzapine (Zyprexa) 10 mg DAILY PO ; Start 08/23/18 at 09:00 Polyethylene Glycol (Miralax) 17 gm BID PO Last administered on 08/25/18at 09:20; Admin Dose 17 GM; Start 08/22/18 at 21:00 Methadone HCl (Methadone) 80 mg DAILY PO Last administered on 08/25/18at 09:20; Admin Dose 80 MG; Start 08/23/18 at 09:00 Vancomycin HCl (Vanco Iv Per Pharmacy) VANCOMYCIN PER PHARMACY PER PROTOCOL XX ; Start 08/23/18 at 16:30 Bisacodyl (Dulcolax Supp) 10 mg DAILY PRN [place] CONSTIPATION Last administered on 08/23/18at 22:03; Admin Dose 10 MG; Start 08/23/18 at 21:54 Epoetin Aramis (Epogen (Esrd)) 4,000 units MoWeFr@17 SC ; Start 08/25/18 at 17:00 Famotidine (Pepcid) 20 mg DAILY PO ; Start 08/25/18 at 09:00 Mupirocin (Bactroban) 1 applic BID TOP Last administered on 08/25/18at 09:20; Admin Dose 1 APPLIC; Start 08/24/18 at 21:00 Heparin Sodium (Porcine) (Heparin (1000 Units/ml)) 4,000 unit AFTER DIALYSIS CATHETER ; Start 08/24/18 at 16:00 CHRISTOPHER GIRALDO MD Aug 25, 2018 11:20
--- NOTE | 2018-08-25 14:42 | CONS ---
Date/Time of Note Date/Time of Note DATE: 08/25/18 TIME: 14:38 Assessment/Plan Assessment/Plan Hospital Course ID INITIAL NOTE CURRENT ABX: DAY #Vanco IV 24H INTERVAL SUMMARY * Napping with computer in his lap -- awakens, no complaints, feels OK, No fev ers, VSS, lethargic, generalized weakness * Case D/W Dr. Elaine -- both BCx samples were taken from peripheral antecubital site == NO BCX obtained from HD cath that was REMOVED PRIOR TO THE BCX == Henc e BCx (+)CoNS 1/2 bottles is likely a SKIN CONTAMINANT. Patient may proceed to placement of new PermCATH MICRO * 08/22/18 (+)MRSA Nares * 08/22/18 BCX (+) BLOOD CULTURE Preliminary BCULT GRAM BOTTLE 1 Gram positive cocci in pairs and clusters . seen on gram stain of the broth Organism 1 COAGULASE NEGATIVE STAPH PHYSICAL EXAMINATION: GENERAL: Afebrile, VSS, lethargic w/generalized weakness HEENT: AT, NC, anicteric, moist oral membranes NECK: Supple, trach -> Secure to patient CHEST: Equal chest rise bilaterally, without dyspnea on observation HEART: Pulse RRR ABDOMEN: Soft EXTREMITIES: Warm, dry ==healing skin wounds SKIN: No rash, no diaphoresis ID ASSESSMENT 38 yo M admit with: 1. SIRS on admission w/Tmax 98.9, HR 95, B/P 90/60, WBC 11.1 due to #2 2. Suspected HD Line Sepsis w/ (+)CoNS * 08/22/18 BCX (+) BLOOD CULTURE Preliminary BCULT GRAM BOTTLE 1 Gram positive cocci in pairs and clusters . seen on gram stain of the broth Organism 1 COAGULASE NEGATIVE STAPH 3. Malfunction right groin Sonny catheter. Skipped one session of hemodialy sis 4. End end-stage renal disease on hemodialysis 3 times a week 5. VDRF with Tracheostomy 5. History of botulism 6. 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 Severe normocytic anemia: Possibly secondary to chronic kidney disease, required blood transfusion 8. Hypertension 9. Former Tobaccoism 10. Healing skin abscesses (+)MRSA Nares ->Bactroban onboard ABX ALLERGIES: SULFA INVASIVES: PIV CURRENT ABX: DAY #= Vanco IV ID RECOMMENDATIONS/PLAN: Continue Vanco IV -- Repeat BCx next HD Case D/W Dr. Elaine -- both BCx samples were taken from peripheral antecubital site == NO BCX obtained from HD cath that was REMOVED PRIOR TO THE BCX == Hence BCx (+)CoNS 1/2 bottles is likely a SKIN CONTAMINANT. Patient may proceed to placement of new PermCATH . Result Diagram: 08/25/18 0557 08/25/18 1110 Results 24hrs Laboratory Tests Test 08/25/18 05:57 08/25/18 11:10 White Blood Count 7.6 Red Blood Count 3.11 L Hemoglobin 9.5 L Hematocrit 29.5 L Mean Corpuscular Volume 94.9 Mean Corpuscular Hemoglobin 30.5 Mean Corpuscular Hemoglobin Concent 32.2 Red Cell Distribution Width 14.7 H Platelet Count 214 Mean Platelet Volume 9.8 Immature Granulocytes % 1.300 H Neutrophils % 59.3 Lymphocytes % 23.6 Monocytes % 11.1 H Eosinophils % 4.3 Basophils % 0.4 Nucleated Red Blood Cells % 0.0 Immature Granulocytes # 0.100 H Neutrophils # 4.5 Lymphocytes # 1.8 Monocytes # 0.8 Eosinophils # 0.3 Basophils # 0.0 Nucleated Red Blood Cells # 0.0 Sodium Level 139 Potassium Level 3.9 Chloride Level 100 Carbon Dioxide Level 27 Anion Gap 12 Blood Urea Nitrogen 70 H Creatinine 5.15 H Est Glomerular Filtrat Rate mL/min 13 L Glucose Level 107 Calcium Level 9.9 Random Vancomycin Level 16.0 Consultation Date/Type/Reason Admit Date/Time Aug 25, 2018 at 09:51 Initial Consult Date Exam/Review of Systems Vital Signs Vitals Vital Signs Date Temp Pulse Resp B/P (MAP) Pulse Ox O2 O2 Flow FiO2 Time Delivery Rate 08/25/18 75 18 100 30 13:38 08/25/18 98.2 120/75 11:37 (90) 08/23/18 Mechanical 17:54 Ventilator T Tube Intake and Output 08/24/18 08/24/18 08/25/18 1515:00 23:00 07:00 IntakeIntake Total 800 ml 900 ml OutputOutput Total 600 ml 700 ml BalanceBalance 200 ml 200 ml Medications Medications Current Medications Acetaminophen (Tylenol Tab) 650 mg Q8 PRN PO MILD PAIN(1-3)OR ELEVATED TEMP; Start 08/22/18 at 14:00 Alprazolam (Xanax) 0.5 mg Q4H PRN PO ANXIETY Last administered on 08/25/18at 05:33; Admin Dose 0.5 MG; Start 08/22/18 at 14:00 Amlodipine Besylate (Norvasc) 5 mg DAILY PO Last administered on 08/23/18at 08:57; Admin Dose 5 MG; Start 08/22/18 at 14:00 Docusate Sodium (Colace) 100 mg DAILY PO Last administered on 08/25/18at 09:20; Admin Dose 100 MG; Start 08/22/18 at 14:00 Furosemide (Lasix) 20 mg DAILY PO ; Start 08/23/18 at 09:00 Megestrol Acetate (Megace) 40 mg BID PO ; Start 08/22/18 at 21:00 Olanzapine (Zyprexa) 10 mg DAILY PO ; Start 08/23/18 at 09:00 Polyethylene Glycol (Miralax) 17 gm BID PO Last administered on 08/25/18at 09:20; Admin Dose 17 GM; Start 08/22/18 at 21:00 Methadone HCl (Methadone) 80 mg DAILY PO Last administered on 08/25/18at 09:20; Admin Dose 80 MG; Start 08/23/18 at 09:00 Vancomycin HCl (Vanco Iv Per Pharmacy) VANCOMYCIN PER PHARMACY PER PROTOCOL XX ; Start 08/23/18 at 16:30 Bisacodyl (Dulcolax Supp) 10 mg DAILY PRN [place] CONSTIPATION Last administered on 08/23/18at 22:03; Admin Dose 10 MG; Start 08/23/18 at 21:54 Epoetin Aramis (Epogen (Esrd)) 4,000 units MoWeFr@17 SC ; Start 08/25/18 at 17:00 Famotidine (Pepcid) 20 mg DAILY PO ; Start 08/25/18 at 09:00 Mupirocin (Bactroban) 1 applic BID TOP Last administered on 08/25/18at 09:20; Admin Dose 1 APPLIC; Start 08/24/18 at 21:00 Heparin Sodium (Porcine) (Heparin (1000 Units/ml)) 4,000 unit AFTER DIALYSIS CATHETER ; Start 08/24/18 at 16:00 EMILIA MADERA NP Aug 25, 2018 14:42
[2018-08-25] MEDS: EPOETIN 4000 UNITS/1 ML INJ (ESRD) SC SCH (17:00)
--- NOTE | 2018-08-25 17:59 | NUR ---
VANCOMYCIN PER PHARMACY Problem List: SIRS 2/2 CONS BACTEREMIA FROM HD CATH, ESRD-HD, VDRF, H/O BOTULISM, FORMER IV HEROIN USER - HEP C+, HEALING SKIN ABSCESSES Current ABXs: VANCOMYCIN Levels/Significant Labs: 08/25 RANDOM VANCOMYCIN = 16.0 Comments/Plan: WILL INITIATE VANCOMYCIN AT 750 MG Q96H
[2018-08-25] MEDS ORDERED: VANCOMYCIN 750 MG (PMX) 250 ML IVPB SCH (21:00)
[2018-08-26] VITALS (24 sets, daily range): BP systolic 121–175; BP diastolic 68–92; PULSE 62–76; RESP 10–20
[2018-08-26] MEDS: ALPRAZOLAM 0.25 MG TAB PO PRN ×3 (05:13→22:42)
--- NOTE | 2018-08-26 05:52 | NUR ---
End of shift notes: Receive pt awake on bed. A/Ox 3-4; SR on the monitor.Pt refused repositioning. Suctioning done PRN; Denies pain in my shift, just asking for his xanax on time. Needs attended. Keep safe and free from injury. Still for SNIF placement. Will continue to monitor.Endorsed to day shift.
[2018-08-26] MEDS: METHADONE 10 MG TAB PO SCH (08:42)
[2018-08-26] MEDS: MEGESTROL 40 MG TAB PO SCH ×2 (09:00→21:00)
[2018-08-26] MEDS: FAMOTIDINE 20 MG TAB PO SCH (09:00)
[2018-08-26] MEDS: MUPIROCIN 2% 22 GM OINT TOP SCH ×2 (09:00→21:00)
[2018-08-26] MEDS: AMLODIPINE 5 MG TAB PO SCH (09:00)
[2018-08-26] MEDS: POLYETHYLENE GLYCOL 17 GM PACKET PO SCH ×2 (09:00→21:00)
[2018-08-26] MEDS: FUROSEMIDE 20 MG TAB PO SCH (09:00)
[2018-08-26] MEDS: OLANZAPINE 5 MG TAB PO SCH (09:00)
[2018-08-26] MEDS: DOCUSATE SODIUM 100 MG CAP PO SCH (09:00)
--- NOTE | 2018-08-26 09:00 | NUR ---
[facility] BEDSIDE to do Dialysis, pt refusing at the current time. Wants to do Dialysis later in the afternoon.
--- NOTE | 2018-08-26 10:00 | NUR ---
Pt refusing all medications, only wants methadone. Dr. Elaine made aware.
--- NOTE | 2018-08-26 10:42 | PN ---
Date/Time of Note Date/Time of Note DATE: 08/26/18 TIME: 10:41 Assessment/Plan VTE Prophylaxis Risk score (from Ns)>0 risk: 1 SCD applied (from Ns): No SCD contraindicated: low risk/ambulating Pharmacological prophylaxis: NA/contraindicated Pharm contraindication: low risk/ambulating Lines/Catheters IV [facility]from [facility] spencer Urinary Cath still in place: No Assessment/Plan Hospital Course 38 y/o with 1. Malfunction right groin Spencer catheter. Skipped one session of hemodialysis nows with CONS bacterimia ? contaminant 2. End end-stage renal disease on hemodialysis 3 times a week 3. VDRF with Tracheostomy 4. History of botulism 5. hx of drug abuse currently on methadone 6. hx if chronic kidney disease with last creatinine May 2018 3.4. 7. Severe normocytic anemia: Possibly secondary to chronic kidney disease, required blood transfusion 8. hypertension 9. SIRS, blood culture are gram positive, on Vancomycin 10 Hx of Hep. B Assessment/Plan -c/w vancomycin -IR put in a permacath placement tomorrow - hd today -DVT prophylaxis SCD -GI prophylaxis famotidine twice daily -continue his current dose of methadone 80 mg - f/u id Recs - bld cx neg so far Result Diagram: 08/25/18 0557 08/25/18 1110 Results 24hrs Laboratory Tests Test 08/25/18 11:10 Sodium Level 139 Potassium Level 3.9 Chloride Level 100 Carbon Dioxide Level 27 Anion Gap 12 Blood Urea Nitrogen 70 H Creatinine 5.15 H Est Glomerular Filtrat Rate mL/min 13 L Glucose Level 107 Calcium Level 9.9 Random Vancomycin Level 16.0 Subjective 24 Hr Interval Summary Free Text/Dictation he refused hemodialysis yesterday Plan for HD today Cultures negative so far Exam/Review of Systems Vital Signs Vitals Vital Signs Date Temp Pulse Resp B/P (MAP) Pulse Ox O2 O2 Flow FiO2 Time Delivery Rate 08/26/18 74 08:00 08/26/18 98.6 20 129/89 96 Mechanical 07:45 (102) Ventilator 08/26/18 30 05:27 Intake and Output 08/25/18 08/25/18 08/26/18 1515:00 23:00 07:00 IntakeIntake Total 1750 ml 1325 ml OutputOutput Total 1025 ml 850 ml BalanceBalance 725 ml 475 ml Exam Constitutional: alert, oriented ENMT: other (tracheostomy) Neck: supple Cardiovascular: regular rate and rhythm Gastrointestinal: soft Genitourinary - Male: CVA tenderness; No nl penis, No nl scrotum, No discharge, No other rt neck spencer Medications Medications Current Medications Acetaminophen (Tylenol Tab) 650 mg Q8 PRN PO MILD PAIN(1-3)OR ELEVATED TEMP; Start 08/22/18 at 14:00 Alprazolam (Xanax) 0.5 mg Q4H PRN PO ANXIETY Last administered on 08/26/18at 05:13; Admin Dose 0.5 MG; Start 08/22/18 at 14:00 Amlodipine Besylate (Norvasc) 5 mg DAILY PO Last administered on 08/23/18at 08:57; Admin Dose 5 MG; Start 08/22/18 at 14:00 Docusate Sodium (Colace) 100 mg DAILY PO Last administered on 08/25/18at 09:20; Admin Dose 100 MG; Start 08/22/18 at 14:00 Furosemide (Lasix) 20 mg DAILY PO ; Start 08/23/18 at 09:00 Megestrol Acetate (Megace) 40 mg BID PO ; Start 08/22/18 at 21:00 Olanzapine (Zyprexa) 10 mg DAILY PO ; Start 08/23/18 at 09:00 Polyethylene Glycol (Miralax) 17 gm BID PO Last administered on 08/25/18at 09:20; Admin Dose 17 GM; Start 08/22/18 at 21:00 Methadone HCl (Methadone) 80 mg DAILY PO Last administered on 08/26/18at 08:42; Admin Dose 80 MG; Start 08/23/18 at 09:00 Vancomycin HCl (Vanco Iv Per Pharmacy) VANCOMYCIN PER PHARMACY PER PROTOCOL XX ; Start 08/23/18 at 16:30 Bisacodyl (Dulcolax Supp) 10 mg DAILY PRN [place] CONSTIPATION Last administered on 08/23/18at 22:03; Admin Dose 10 MG; Start 08/23/18 at 21:54 Epoetin Aramis (Epogen (Esrd)) 4,000 units MoWeFr@17 SC ; Start 08/25/18 at 17:00 Famotidine (Pepcid) 20 mg DAILY PO ; Start 08/25/18 at 09:00 Mupirocin (Bactroban) 1 applic BID TOP Last administered on 08/25/18at 09:20; Admin Dose 1 APPLIC; Start 08/24/18 at 21:00 Heparin Sodium (Porcine) (Heparin (1000 Units/ml)) 4,000 unit AFTER DIALYSIS CATHETER ; Start 08/24/18 at 16:00 Vancomycin/Sodium Chloride 250 ml @ 125 mls/hr Q96H IVPB Last administered on 08/25/18at 21:05; Admin Dose 125 MLS/HR; Start 08/25/18 at 21:00 CHRISTOPHER GIRALDO MD Aug 26, 2018 10:42
--- NOTE | 2018-08-26 14:35 | CONS ---
Assessment/Plan Assessment/Plan Hospital Course Patient is alert feels good denies pain, no fevers overnight. No labs Microbiology: Blood culture on admission grew coag negative staph species, repeat blood cultures negative, nares swab positive for MRSA Allergies sulfa Antimicrobials: Vancomycin Indwelling: Tracheostomy, right IJ Sonny Physical examination: Well-developed chronically ill-appearing middle aged man who is awake in no distress. Head atraumatic normocephalic sclera anicteric. Chest rise symmetrical breath sounds clear. Heart: S1-S2. Abdomen soft bowel sounds present. Extremities without cyanosis. Assessment: 1. Systemic inflammatory response syndrome on admission 2. Coag negative staph bacteremia, status post femoral Sonny catheter discontinued 3. History of botulism 4. End-stage renal disease, hemodialysis dependent 5. History of IV heroin use, currently on methadone 6. Hypertension 7. MRSA nares, colonization Plan: Patient remained stable, repeat blood cultures negative, we will add Hibiclens baths daily, continue antibiotics, await for permacath placement Result Diagram: 08/25/18 0557 08/25/18 1110 Consultation Date/Type/Reason Admit Date/Time Aug 25, 2018 at 09:51 Initial Consult Date Type of Consult id Exam/Review of Systems Vital Signs Vitals Vital Signs Date Temp Pulse Resp B/P (MAP) Pulse Ox O2 O2 Flow FiO2 Time Delivery Rate 08/26/18 69 12:00 08/26/18 98.6 14 175/92 99 Mechanical 11:57 (119) Ventilator 08/26/18 30 05:27 Intake and Output 08/25/18 08/25/18 08/26/18 1515:00 23:00 07:00 IntakeIntake Total 1750 ml 1325 ml OutputOutput Total 1025 ml 850 ml BalanceBalance 725 ml 475 ml Medications Medications Current Medications Acetaminophen (Tylenol Tab) 650 mg Q8 PRN PO MILD PAIN(1-3)OR ELEVATED TEMP; Start 08/22/18 at 14:00 Alprazolam (Xanax) 0.5 mg Q4H PRN PO ANXIETY Last administered on 08/26/18at 05:13; Admin Dose 0.5 MG; Start 08/22/18 at 14:00 Amlodipine Besylate (Norvasc) 5 mg DAILY PO Last administered on 08/23/18at 08:57; Admin Dose 5 MG; Start 08/22/18 at 14:00 Docusate Sodium (Colace) 100 mg DAILY PO Last administered on 08/25/18at 09:20; Admin Dose 100 MG; Start 08/22/18 at 14:00 Furosemide (Lasix) 20 mg DAILY PO ; Start 08/23/18 at 09:00 Megestrol Acetate (Megace) 40 mg BID PO ; Start 08/22/18 at 21:00 Olanzapine (Zyprexa) 10 mg DAILY PO ; Start 08/23/18 at 09:00 Polyethylene Glycol (Miralax) 17 gm BID PO Last administered on 08/25/18at 09:20; Admin Dose 17 GM; Start 08/22/18 at 21:00 Methadone HCl (Methadone) 80 mg DAILY PO Last administered on 08/26/18at 08:42; Admin Dose 80 MG; Start 08/23/18 at 09:00 Vancomycin HCl (Vanco Iv Per Pharmacy) VANCOMYCIN PER PHARMACY PER PROTOCOL XX ; Start 08/23/18 at 16:30 Bisacodyl (Dulcolax Supp) 10 mg DAILY PRN [place] CONSTIPATION Last administered on 08/23/18at 22:03; Admin Dose 10 MG; Start 08/23/18 at 21:54 Epoetin Aramis (Epogen (Esrd)) 4,000 units MoWeFr@17 SC ; Start 08/25/18 at 17:00 Famotidine (Pepcid) 20 mg DAILY PO ; Start 08/25/18 at 09:00 Mupirocin (Bactroban) 1 applic BID TOP Last administered on 08/25/18at 09:20; Admin Dose 1 APPLIC; Start 08/24/18 at 21:00 Heparin Sodium (Porcine) (Heparin (1000 Units/ml)) 4,000 unit AFTER DIALYSIS CATHETER ; Start 08/24/18 at 16:00 Vancomycin/Sodium Chloride 250 ml @ 125 mls/hr Q96H IVPB Last administered on 08/25/18at 21:05; Admin Dose 125 MLS/HR; Start 08/25/18 at 21:00 Date/Time of Note Date/Time of Note DATE: 08/26/18 TIME: 14:35 ROSALIND TELLO NP Aug 26, 2018 14:35
--- NOTE | 2018-08-26 18:50 | NUR ---
EOSS- pt laying in bed on dialysis. Still refusing skin assessments and care. Pt scheduled for Permacath Placement tomorrow. States he does not want to sign consent until tomorrow. Pt to be NPO after midnight for procedure. Made pt aware but pt was upset about not getting to eat after midnight. Will endorse care to nightshift.
--- NOTE | 2018-08-26 21:02 | NUR ---
patient refused dialysis - did want to wait for a working machine after machine problems during setup; Dr Keven Arreguin paged twice to update, no call back yet. [facility] refueler notified to anticipate morning 08/27 dialysis tx. Report given to Sara Abarca RN
--- NOTE | 2018-08-26 23:59 | NUR ---
Dialysis not done per Will HD nurse the 2 machines he used was not working, he wanted to get the third machine but the pt refused to try that third one, instead he wanted to have it done tomorrow. Per Rodney send a message to Dr Arreguin but he didnt reply. I also tried to call Dr Arreguin but to no avail.Will continue to monitor.
[2018-08-27] VITALS (24 sets, daily range): BP systolic 129–154; BP diastolic 80–91; PULSE 60–72; RESP 11–20
[2018-08-27] MEDS: ALPRAZOLAM 0.25 MG TAB PO PRN ×3 (05:36→20:49)
--- NOTE | 2018-08-27 06:00 | NUR ---
End of shift notes: Vital signs remains stable, on same vent settings. Dialysis not done because of machine malfunction. Tried to notify Dr Arreguin , but no answer. Pt refused to be reposition and clean. Kept NPO post midnight. Schedule for permacath placement today but refused to sign the consent , he wants to talk to the Dr Will continue to monitor. Plan of care discussed with the pt. Endorsed to day shift,
[2018-08-27] MEDS: POLYETHYLENE GLYCOL 17 GM PACKET PO SCH ×2 (09:00→20:48)
[2018-08-27] MEDS: FAMOTIDINE 20 MG TAB PO SCH (09:00)
[2018-08-27] MEDS: MUPIROCIN 2% 22 GM OINT TOP SCH ×2 (09:00→20:51)
[2018-08-27] MEDS: AMLODIPINE 5 MG TAB PO SCH (09:00)
[2018-08-27] MEDS: DOCUSATE SODIUM 100 MG CAP PO SCH (09:00)
[2018-08-27] MEDS: MEGESTROL 40 MG TAB PO SCH ×2 (09:00→20:51)
[2018-08-27] MEDS: FUROSEMIDE 20 MG TAB PO SCH (09:00)
[2018-08-27] MEDS: OLANZAPINE 5 MG TAB PO SCH (09:00)
[2018-08-27] MEDS: METHADONE 10 MG TAB PO SCH (09:02)
--- NOTE | 2018-08-27 09:32 | NUR ---
RN NOTES PT. REFUSED TO HAVE BLOOD EXTRACTION AND HE ALSO REFUSED PERMACATH INSERTION. RISK AND BENEFITS EXPLAINED BUT STILL REFUSED. SPOKED WITH DR. FIELD AND INFORMED HER.
--- NOTE | 2018-08-27 11:00 | NUR ---
SW: CONSULTATION SW was consulted to meet with this patient, as he has been refusing procedure, blood draw and blood extraction. SW met chente this 38-year-old Spanish speaking male at bedside. Patient Aox4. Patient states that he currently resides at a SNF, and states that he wants to eventually go back. Addendum: 08/27/18 at 1457 by DARA AMAYA Patient states that the reason he was refusing the procedure and testing was because the medical team was not providing him with his methadone. He states he has been on methadone for many years, and states he is in too much pain without his methadone. He states he is willing to wake up at 4am if needed to get his methadone for the day, if he is required to fast for certain amount of time for the procedure and testing. Patient states he is not refusing the testing and procedure overall, and states that as long as he gets his regular dose of methadone, he is willing to participate with the required testing and procedures. SW requested RN to come in and also discuss this with patient to better understand reason for patient refusing the above procedure and tests. RN will speak with Dr. Elaine to further discuss patient's request for methadone. Patient denies any other questions/ concerns, and thanked this technical writer for the support. Regulatory Assistant remains available as needed.
--- NOTE | 2018-08-27 11:43 | PN ---
ARVIN BIRCH 08/27/18 1143: Date/Time of Note Date/Time of Note DATE: 08/27/18 TIME: 11:41 Assessment/Plan VTE Prophylaxis Risk score (from [facility])>0 risk: 1 SCD applied (from [facility]): No SCD contraindicated: low risk/ambulating Pharmacological prophylaxis: NA/contraindicated Pharm contraindication: low risk/ambulating Lines/Catheters IV Catheter Type (from [facility]): QIUNTON Urinary Cath still in place: No Assessment/Plan Hospital Course 1. Malfunction right groin Sonny catheter. Skipped one session of hemodialysis 2. End end-stage renal disease on hemodialysis 3 times a week 3. VDRF with Tracheostomy 4. History of botulism 5. hx of drug abuse currently on methadone 6. hx if chronic kidney disease with last creatinine May 2018 3.4. 7. Severe normocytic anemia: Possibly secondary to chronic kidney disease, required blood transfusion 8. hypertension 9. SIRS, blood culture are gram positive, on Vancomycin 10 Hx of Hep. B Assessment/Plan -c/w vancomycin -IR put in a permacath placement tomorrow, today pt refused - hd today -DVT prophylaxis SCD -GI prophylaxis famotidine twice daily -continue his current dose of methadone 80 mg - f/u id Recs - bld cx neg so far Result Diagram: 08/25/18 0557 08/25/18 1110 Subjective 24 Hr Interval Summary Subjective hx not possible: pt non-verbal Exam/Review of Systems Vital Signs Vitals Vital Signs Date Temp Pulse Resp B/P (MAP) Pulse Ox O2 O2 Flow FiO2 Time Delivery Rate 08/27/18 98.6 71 16 154/84 99 Mechanical 11:06 (107) Ventilator 08/27/18 30 09:15 Intake and Output 08/26/18 08/26/18 08/27/18 1414:59 22:59 06:59 IntakeIntake Total 1200 ml OutputOutput Total 901 ml BalanceBalance 299 ml Exam Constitutional: alert, oriented Head: normocephalic Neck: supple, other (tracheostomy) Respiratory: clear to auscultation Cardiovascular: regular rate and rhythm Gastrointestinal: soft Medications Medications Current Medications Acetaminophen (Tylenol Tab) 650 mg Q8 PRN PO MILD PAIN(1-3)OR ELEVATED TEMP; Start 08/22/18 at 14:00 Alprazolam (Xanax) 0.5 mg Q4H PRN PO ANXIETY Last administered on 08/27/18 05:36; Admin Dose 0.5 MG; Start 08/22/18 at 14:00 Amlodipine Besylate (Norvasc) 5 mg DAILY PO Last administered on 08/23/18 08:57; Admin Dose 5 MG; Start 08/22/18 at 14:00 Docusate Sodium (Colace) 100 mg DAILY PO Last administered on 08/25/18at 09:20; Admin Dose 100 MG; Start 08/22/18 at 14:00 Furosemide (Lasix) 20 mg DAILY PO ; Start 08/23/18 at 09:00 Megestrol Acetate (Megace) 40 mg BID PO ; Start 08/22/18 at 21:00 Olanzapine (Zyprexa) 10 mg DAILY PO ; Start 08/23/18 at 09:00 Polyethylene Glycol (Miralax) 17 gm BID PO Last administered on 08/25/18 09:20; Admin Dose 17 GM; Start 08/22/18 at 21:00 Methadone HCl (Methadone) 80 mg DAILY PO Last administered on 08/27/18 09:02; Admin Dose 80 MG; Start 08/23/18 at 09:00 Vancomycin HCl (Vanco Iv Per Pharmacy) VANCOMYCIN PER PHARMACY PER PROTOCOL XX ; Start 08/23/18 at 16:30 Bisacodyl (Dulcolax Supp) 10 mg DAILY PRN [place] CONSTIPATION Last administered on 08/23/18at 22:03; Admin Dose 10 MG; Start 08/23/18 at 21:54 Epoetin Aramis (Epogen (Esrd)) 4,000 units MoWeFr@17 SC ; Start 08/25/18 at 17:00 Famotidine (Pepcid) 20 mg DAILY PO ; Start 08/25/18 at 09:00 Mupirocin (Bactroban) 1 applic BID TOP Last administered on 08/25/18at 09:20; Admin Dose 1 APPLIC; Start 08/24/18 at 21:00 Heparin Sodium (Porcine) (Heparin (1000 Units/ml)) 4,000 unit AFTER DIALYSIS CATHETER ; Start 08/24/18 at 16:00 Vancomycin/Sodium Chloride 250 ml @ 125 mls/hr Q96H IVPB Last administered on 1/21/19at 21:05; Admin Dose 125 MLS/HR; Start 08/25/18 at 21:00 CHRISTOPHER GIRALDO MD 08/28/18 0649: Assessment/Plan Assessment/Plan Assessment/Plan PT REFUSED HD 2 DAYS IN ROW?? PERMCATH TMW WILL DO HD TODAY Result Diagram: 08/25/18 0557 08/25/18 1110 ARVIN MAJOR Aug 27, 2018 11:43 CHRISTOPHER GIRALDO MD Aug 28, 2018 06:49
--- NOTE | 2018-08-27 14:13 | CONS ---
Assessment/Plan Assessment/Plan Hospital Course Patient is alert, feels goo no fevers Microbiology: Blood culture on admission grew coag negative staph species, repeat blood cultures negative, nares swab positive for MRSA Allergies: Sulfa Antimicrobials: Vancomycin Indwelling: Tracheostomy, right IJ Sonny Physical examination: Well-developed chronically ill-appearing middle aged man who is awake in no distress. Head atraumatic normocephalic sclera anicteric. Chest rise symmetrical breath sounds clear. Heart: S1-S2. Abdomen soft bowel sounds present. Extremities without cyanosis. Assessment: 1. Systemic inflammatory response syndrome on admission 2. Coag negative staph bacteremia, status post femoral Sonny catheter discontinued 3. History of botulism 4. End-stage renal disease, hemodialysis dependent 5. History of IV heroin use, currently on methadone 6. Hypertension 7. MRSA nares, colonization Plan: Patient remained stable, repeat blood cultures negative, continue antibiotics[facility] Result Diagram: 08/25/18 0557 08/25/18 1110 Consultation Date/Type/Reason Admit Date/Time Aug 25, 2018 at 09:51 Initial Consult Date Type of Consult id Exam/Review of Systems Vital Signs Vitals Vital Signs Date Temp Pulse Resp B/P (MAP) Pulse Ox O2 O2 Flow FiO2 Time Delivery Rate 08/27/18 66 17 100 30 12:56 08/27/18 98.6 154/84 Mechanical 11:06 (107) Ventilator Intake and Output 08/26/18 08/26/18 08/27/18 1515:00 23:00 07:00 IntakeIntake Total 1200 ml OutputOutput Total 901 ml BalanceBalance 299 ml Medications Medications Current Medications Acetaminophen (Tylenol Tab) 650 mg Q8 PRN PO MILD PAIN(1-3)OR ELEVATED TEMP; Start 08/22/18 at 14:00 Alprazolam (Xanax) 0.5 mg Q4H PRN PO ANXIETY Last administered on 08/27/18at 13:46; Admin Dose 0.5 MG; Start 08/22/18 at 14:00 Amlodipine Besylate (Norvasc) 5 mg DAILY PO Last administered on 08/23/18at 08:57; Admin Dose 5 MG; Start 08/22/18 at 14:00 Docusate Sodium (Colace) 100 mg DAILY PO Last administered on 08/25/18at 09:20; Admin Dose 100 MG; Start 08/22/18 at 14:00 Furosemide (Lasix) 20 mg DAILY PO ; Start 08/23/18 at 09:00 Megestrol Acetate (Megace) 40 mg BID PO ; Start 08/22/18 at 21:00 Olanzapine (Zyprexa) 10 mg DAILY PO ; Start 08/23/18 at 09:00 Polyethylene Glycol (Miralax) 17 gm BID PO Last administered on 08/25/18at 09:20; Admin Dose 17 GM; Start 08/22/18 at 21:00 Methadone HCl (Methadone) 80 mg DAILY PO Last administered on 08/27/18at 09:02; Admin Dose 80 MG; Start 08/23/18 at 09:00 Vancomycin HCl (Vanco Iv Per Pharmacy) VANCOMYCIN PER PHARMACY PER PROTOCOL XX ; Start 08/23/18 at 16:30 Bisacodyl (Dulcolax Supp) 10 mg DAILY PRN [place] CONSTIPATION Last administered on 08/23/18at 22:03; Admin Dose 10 MG; Start 08/23/18 at 21:54 Epoetin Aramis (Epogen (Esrd)) 4,000 units MoWeFr@17 SC ; Start 08/25/18 at 17:00 Famotidine (Pepcid) 20 mg DAILY PO ; Start 08/25/18 at 09:00 Mupirocin (Bactroban) 1 applic BID TOP Last administered on 08/25/18at 09:20; Admin Dose 1 APPLIC; Start 08/24/18 at 21:00 Heparin Sodium (Porcine) (Heparin (1000 Units/ml)) 4,000 unit AFTER DIALYSIS CATHETER ; Start 08/24/18 at 16:00 Vancomycin/Sodium Chloride 250 ml @ 125 mls/hr Q96H IVPB Last administered on 08/25/18at 21:05; Admin Dose 125 MLS/HR; Start 08/25/18 at 21:00 Date/Time of Note Date/Time of Note DATE: 08/27/18 TIME: 14:12 ROSALIND TELLO NP Aug 27, 2018 14:13
--- NOTE | 2018-08-27 15:30 | NUR ---
RN NOTES SPOKED WITH DR. GIRALDO AND SHE SAID TO CALL [facility] AND SHE WILL PUT IN THE ORDER. SPOKED WITH HELENE FOR DIALYSIS TODAY WITH CONFIRMATION # [id number].
[2018-08-27] MEDS: EPOETIN 4000 UNITS/1 ML INJ (ESRD) SC SCH (17:00)
--- NOTE | 2018-08-27 18:46 | NUR ---
EOSS PT. IS ALERT, CALL LIGHT W/IN REACH. NO SOB OR DISTRESS NOTED. PT. IS FOR DIALYSIS TODAY. PT. IS FOR PERMACATH PLACEMENT CARL, PER PT. HE WILL SIGH THE CONSENT WHEN HE TALK TO THE MD. REFUSED MEDICATION, MD IS AWARE. ENCOURAGE REPOSITIONING. KEPT CLEAN AND DRY. WILL CONTINUE TO MONITOR.
[2018-08-28] VITALS (34 sets, daily range): BP systolic 105–158; BP diastolic 59–88; PULSE 12–89; RESP 12–22
[2018-08-28] MEDS: ALPRAZOLAM 0.25 MG TAB PO PRN ×3 (00:36→20:06)
--- NOTE | 2018-08-28 05:46 | NUR ---
EOSS PT. IS ALERT, CALL LIGHT W/IN REACH. NO SOB OR DISTRESS NOTED.. PT. IS FOR PERMACATH PLACEMENT THIS MORNING, PER PT. HE WILL SIGH THE CONSENT WHEN HE TALK TO THE MD., MD IS AWARE. ENCOURAGE REPOSITIONING. KEPT CLEAN AND DRY. WILL CONTINUE TO MONITOR. REPORT TO BE ENDORSED TO NEXT SHIFT.
--- NOTE | 2018-08-28 05:50 | NUR ---
CALLED [facility] REGARDING THE DIALYSIS PATIENT WAS SUPPOSED TO HAVE DURING THE NIGHT, INFORMED THAT NOBODY CAME FROM [facility], MATEO STATED SHE WILL CALL BACK WITH A SCHEDULE TIME, CONFIRMATION # [id number]
--- NOTE | 2018-08-28 08:33 | NUR ---
GIULIANO SOLANO DIALYSIS NURSE CAME TO DO HD , BUT PT REFUSED. HE REQUESTED TO HAVE IT DONE THIS AFTERNOON.
[2018-08-28] MEDS: MUPIROCIN 2% 22 GM OINT TOP SCH ×2 (08:52→20:06)
[2018-08-28] MEDS: METHADONE 10 MG TAB PO SCH (08:55)
[2018-08-28] MEDS: OLANZAPINE 5 MG TAB PO SCH (09:00)
[2018-08-28] MEDS: POLYETHYLENE GLYCOL 17 GM PACKET PO SCH ×2 (09:00→20:06)
[2018-08-28] MEDS: DOCUSATE SODIUM 100 MG CAP PO SCH (09:00)
[2018-08-28] MEDS: FUROSEMIDE 20 MG TAB PO SCH (09:00)
[2018-08-28] MEDS: AMLODIPINE 5 MG TAB PO SCH (09:00)
[2018-08-28] MEDS: FAMOTIDINE 20 MG TAB PO SCH (09:00)
[2018-08-28] MEDS: MEGESTROL 40 MG TAB PO SCH ×2 (09:00→20:06)
--- NOTE | 2018-08-28 09:53 | NUR ---
PT WAS TAKEN DOWN TO RADIOLOGY FOR PERMACATH PLACEMENT. STABLE
[2018-08-28] MEDS ORDERED: HEPARIN 1000 UNITS/NS (A-LINE) 1,000 ML ONE (09:57)
[2018-08-28] MEDS ORDERED: LIDOCAINE 1% (MDV) 20 ML INJ ONE (09:57)
[2018-08-28] MEDS ORDERED: HEPARIN 1000 UNITS/ML 10 ML INJ ONE (09:57)
--- NOTE | 2018-08-28 11:37 | DS ---
Date/Time of Note Date/Time of Note DATE: 08/28/18 TIME: 11:37 Discharge Summary Admission/Discharge Info Admit Date/Time Aug 25, 2018 at 09:51 Discharge Date/Time Discharge Diagnosis HD cath malfunction, bacteremia Patient Condition: Stable Consults ID consult Dr Robles Hospital Course This is a 38-year-old man with a history of end-stage kidney disease, tracheostomy, history of drug abuse,, botulism, and anemia presents to ER for right groin hemodialysis catheter replacement. He has a tracheostomy tube in his mechanical ventilator dependent due to recent botulism and developed respiratory insufficiency. He has had no bleeding from the groin, no fevers or chills, no chest pain or shortness of breath. Patient was transferred from [facility] facility without complications. 1. Malfunction right groin Sonny catheter. Skipped one session of hemodialysis 2. End end-stage renal disease on hemodialysis 3 times a week 3. VDRF with Tracheostomy 4. History of botulism 5. hx of drug abuse currently on methadone 6. hx if chronic kidney disease with last creatinine May 2018 3.4. 7. Severe normocytic anemia: Possibly secondary to chronic kidney disease, required blood transfusion 8. hypertension 9. SIRS, blood culture are gram positive, on Vancomycin 10 Hx of Hep. B. During hospitalization pt had replacement of Sonny catheter and then found to have bacteremia. ID consult Dr Robles, manage pt antibiotics. He had vancomycin infusion after HD. Pt had a permacath placement today, after Hd pt is sent to SNF. During hospitalization pt was on DVT prophylaxis with SCD, GI prophylaxis famotidine twice daily, continued on his current dose of methadone 80 mg. His bld cx neg so far. Home Meds Reported Medications Polyethylene Glycol* (Miralax*) 17 Gm Powd.pack, 17 GM PO BID, #60 PACKET 08/22/18 Amino Acids/Protein Hydrolys (Pro-Stat 64 Liquid) 887 Ml Liquid, 30 ML PO BID 08/22/18 Amlodipine Besylate* (Norvasc*) 5 Mg Tablet, 5 MG PO DAILY, TAB HOLD FOR SBP<110 OR PRIOR TO HD TX 08/22/18 Docusate Sodium* (Colace*) 100 Mg Capsule, 100 MG PO DAILY, #30 CAP 08/22/18 Megestrol Acetate* (Megace*) 40 Mg Tab, 40 MG PO BID, TAB 08/22/18 Furosemide* (Lasix*) 20 Mg Tablet, 20 MG PO DAILY, TAB 08/22/18 Acetaminophen* (Acetaminophen*) 650 Mg Tablet, 650 MG PO Q8 PRN for PAIN AND OR ELEVATED TEMP, #30 TAB 08/22/18 Olanzapine* (Zyprexa*) 10 Mg Tablet, 10 MG PO DAILY, #30 TAB 08/22/18 Alprazolam* (Alprazolam*) 0.5 Mg Tablet, 0.5 MG PO Q4 PRN for ANXIETY, TAB 08/22/18 Discontinued Reported Medications Amlodipine Besylate* (Norvasc*) 5 Mg Tablet, 5 MG PO DAILY, TAB 08/22/18 Discontinued Scripts Sulfamethoxazole/Trimethoprim* (Bactrim Ds* Tablet) 1 Each Tablet, 1 TAB PO BID for 7 Days, #14 TAB Prov:KISHOR SELF MD 05/21/18 Follow-up Plan [facility] Primary Care Provider Care Physician No Primary Time spent on discharge: < 30 minutes Pending Labs Laboratory Tests Test 08/28/18 04:55 White Blood Count 9.4 10^3/ul (4.8-10.8) Red Blood Count 2.63 10^6/ul (4.70-6.10) Hemoglobin 8.1 g/dl (14.0-18.0) Hematocrit 25.3 % (42.0-52.0) Mean Corpuscular Volume 96.2 fl (82.0-101.0) Mean Corpuscular Hemoglobin 30.8 pg (29.0-33.0) Mean Corpuscular Hemoglobin Concent 32.0 g/dl (32.0-37.0) Red Cell Distribution Width 14.6 % (11.5-14.5) Platelet Count 208 10^3/UL (140-415) Mean Platelet Volume 8.6 fl (7.4-10.4) Immature Granulocytes % 2.300 % (0.001-0.429) Neutrophils % 61.9 % (39.0-77.0) Lymphocytes % 20.7 % (15.0-51.0) Monocytes % 11.1 % (0.0-11.0) Eosinophils % 3.6 % (0.0-7.0) Basophils % 0.4 % (0.0-2.0) Nucleated Red Blood Cells % 0.0 /100WBC (0.0-0.0) Immature Granulocytes # 0.220 10^3/ul (0.0-0.031) Neutrophils # 5.8 10^3/ul (1.6-7.5) Lymphocytes # 1.9 10^3/ul (0.8-2.9) Monocytes # 1.0 10^3/ul (0.3-0.9) Eosinophils # 0.3 10^3/ul (0.0-0.5) Basophils # 0.0 10^3/ul (0.0-0.1) Nucleated Red Blood Cells # 0.0 10^3/ul (0.0-0.0) Prothrombin Time 14.2 Sec (11.9-14.9) Prothrombin Time Ratio 1.1 INR International Normalized Ratio 1.09 Activated Partial Thromboplast Time 36.4 Sec (23.0-35.0) Thrombin Time 16.1 SEC (13.8-19.1) Sodium Level 142 mmol/L (135-144) Potassium Level 4.9 mmol/L (3.5-5.1) Chloride Level 101 mmol/L (97-110) Carbon Dioxide Level 28 mmol/L (21-31) Anion Gap 13 (5-13) Blood Urea Nitrogen 74 mg/dl (7-20) Creatinine 4.89 mg/dl (0.61-1.24) Est Glomerular Filtrat Rate mL/min 13 mL/min (>60) Glucose Level 80 mg/dl (70-220) Calcium Level 10.0 mg/dl (8.4-10.2) ARVIN MAJOR Aug 28, 2018 11:37
--- NOTE | 2018-08-28 11:54 | RADRPT ---
PROCEDURE: PLACEMENT OF RIGHT INTERNAL JUGULAR VENOUS TUNNELED DIALYSIS CATHETER. CLINICAL INDICATION: Renal failure. TECHNIQUE: Prior to the procedure, informed consent was obtained. Risks including bleeding, infection, and pneum othorax were explained to the patient and/or the patient's family. The patient and/or the patient's f amily understood and was willing to proceed. A procedural pause was performed. The patient's name, da te of , and procedure to be performed were verified. The central line was inserted with all [place] ents of maximal sterile barrier technique. All of the following were used: head covering, facial mask , sterile gown, sterile gloves, a large sterile sheet, hand hygiene, and 2% chlorhexidine for cutane ous antisepsis. The right neck and anterior/superior chest wall was prepped and draped in usual ster ile fashion. Limited sonography of the right neck was then performed. Noted is a patent right internal jugular vei n. Ultrasound images were recorded and stored in the patient's medical record. Following the local injection of Xylocaine, the right internal jugular vein was punctured under sonog raphic guidance with a 20-gauge needle through which a 0.018 inch floppy tip guidewire was advanced i nto the superior vena cava. The tract was dilated to 5 Urdu and the wire was then replaced with a 0 .035 in Amplatz guidewire. A tunnel was then created from the anterior lateral aspect of the superio r right chest wall to the puncture site in the neck and the catheter was pulled through the tract. S erial dilatation was then performed and a 16 Urdu peel away sheath was introduced. The 14.5 Urdu 23cm tip to cuff Angiodynamics BioFlo DuraMax dialysis catheter was advanced through the 16 Urdu p eel-away sheath. The tip of the catheter was confirmed in position within the right atrium. The peel- away sheath was removed. The 2 ports were each flushed with 2.3 ml of 1:1000 heparin. The catheter w as secured to the skin with 3-0 Ethilon suture. The wound in the neck was closed with 4-0 Vicryl suture using subcuticular running technique. The existing temporary dialysis catheter which w as previously inserted in the mid to upper right internal jugular vein was then removed. Pressure was applied with adequate hemostasis. The site was dressed. The patient tolerated the procedure well. Specimens: None. Blood loss: 5 ml. Complications: None. 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 Anesthesia: Local anesthesia. Graft/Implant: Tunneled dialysis catheter. COMPARISON: None. FINDINGS: Final radiographic images demonstrate the tip of the catheter in the upper right atrium. A total of 0.2 minutes of fluoroscopy time was used. The ultrasound images demonstrate the needle entering the jugular vein. Ultrasound images were recorded and stored in the patient's medical record. 6 images o f the chest were obtained with image intensifier. IMPRESSION: 1. Percutaneous insertion of right internal jugular dialysis tunneled dialysis catheter under fluoros copic and sonographic guidance. RPTAT: QQ .Sacha Chatman MD, MD Date Time Electronically viewed and signed by .Sacha Chatman MD, on 08/28/2018 11:54 .R/
--- NOTE | 2018-08-28 11:57 | CONS ---
Assessment/Plan Assessment/Plan Hospital Course (Demo Recall) No events, all noted, no fevers Microbiology: Blood culture on admission grew coag negative staph species, repeat blood cultures negative, nares swab positive for MRSA Allergies: Sulfa Antimicrobials: Vancomycin Indwelling: Tracheostomy, pcath Physical examination: Well-developed chronically ill-appearing middle aged man who is awake in no distress. Head atraumatic normocephalic sclera anicteric. Chest rise symmetrical breath sounds clear. Heart: S1-S2. Abdomen soft bowel sounds present. Extremities without cyanosis. Assessment: 1. Systemic inflammatory response syndrome on admission 2. Coag negative staph bacteremia, status post femoral Sonny catheter discontinued 3. History of botulism 4. End-stage renal disease, hemodialysis dependent 5. History of IV heroin use, currently on methadone 6. Hypertension 7. MRSA nares, colonization Plan: Patient remained stable, repeat blood cultures negative, continue antibiotics for 2 more weeks, dc plan Consultation Date/Type/Reason Admit Date/Time Aug 25, 2018 at 09:51 Initial Consult Date Type of Consult id Date/Time of Note DATE: 08/28/18 TIME: 11:55 Exam/Review of Systems Exam Vitals Vital Signs Date Temp Pulse Resp B/P (MAP) Pulse Ox O2 O2 Flow FiO2 Time Delivery Rate 08/28/18 98.1 80 19 125/75 96 11:33 (92) 08/28/18 30 08:00 08/27/18 Mechanical 15:27 Ventilator Intake and Output 08/27/18 08/27/18 08/28/18 1515:00 23:00 07:00 IntakeIntake Total 700 ml OutputOutput Total 650 ml BalanceBalance 50 ml Results Result Diagram: 08/28/18 0455 08/28/18 0455 Results 24hrs Laboratory Tests Test 08/28/18 04:55 White Blood Count 9.4 # Red Blood Count 2.63 L Hemoglobin 8.1 L Hematocrit 25.3 L Mean Corpuscular Volume 96.2 Mean Corpuscular Hemoglobin 30.8 Mean Corpuscular Hemoglobin Concent 32.0 Red Cell Distribution Width 14.6 H Platelet Count 208 Mean Platelet Volume 8.6 Immature Granulocytes % 2.300 H Neutrophils % 61.9 Lymphocytes % 20.7 Monocytes % 11.1 H Eosinophils % 3.6 Basophils % 0.4 Nucleated Red Blood Cells % 0.0 Immature Granulocytes # 0.220 H Neutrophils # 5.8 Lymphocytes # 1.9 Monocytes # 1.0 H Eosinophils # 0.3 Basophils # 0.0 Nucleated Red Blood Cells # 0.0 Prothrombin Time 14.2 Prothrombin Time Ratio 1.1 INR International Normalized Ratio 1.09 Activated Partial Thromboplast Time 36.4 H Thrombin Time 16.1 Sodium Level 142 Potassium Level 4.9 Chloride Level 101 Carbon Dioxide Level 28 Anion Gap 13 Blood Urea Nitrogen 74 H Creatinine 4.89 H Est Glomerular Filtrat Rate mL/min 13 L Glucose Level 80 Calcium Level 10.0 ROSALIND TELLO NP Aug 28, 2018 11:57
[2018-08-28] MEDS ORDERED: HEPARIN 1000 UNITS/ML 10 ML INJ CATHETER SCH (12:30)
--- NOTE | 2018-08-28 14:48 | HPN ---
Date/Time of Note Date/Time of Note DATE: 08/28/18 TIME: 14:48 Interval H&P Admission Note Pt. seen H&P reviewed: No system changes ANNETTE HERNANDEZ MD Aug 28, 2018 14:48
--- NOTE | 2018-08-28 16:30 | NUR ---
CM NOTE DISCHARGE PLANING PLAN TO RETURN TO [facility] THIS EVENING, AMBULANCE ARRANGE WITH A [facility]PER[employer] TIME OF 2029 TRIP [phone] AMBULANCE TRACH TO VENT WITH RT CONFIRM WITH MI[facility] WITH [facility] [phone] CM MADE PT AWARE OF THE PLAN TO TRANSFER TONIGHT AND HE IS AGREEABLE.CM ALSO ASK PT IF HE WANTS ANYONE NOTIFIED HE MOUTHED NO. DAVE CUMMINGS RN,C MM EXT [phone]
--- NOTE | 2018-08-28 16:46 | NUR ---
CM NOTE PER [facility] PT RECEIVES HD AT [facility] AND CM FORWARD ORDER FOR [facility] AND UPDATED CLINICALS. [phone] AND FAXED ORDER TO [phone].
--- NOTE | 2018-08-28 18:47 | NUR ---
EOSS: PERMACATH WAS INSERTED THIS PM. PT UNDERWENT HD. NO OUTPUT, ONLY CLEANING DONE. [facility] RECEIVED REPORT OF TRANSFER TONIGHT. ALL NEEDS MET.CONTINUE POC.
--- NOTE | 2018-08-28 23:52 | NUR ---
Discharge Notes EMS and respiratory therapist arrived to transfer patient. Patient to be transferred to [facility]. Tele monitor removed, all belongings kept with patient.
== END 2018-08-28 23:50 | DRG 314 ==
LOC: E/R 11:11 → 6WM 12:27 → OBSVTOIN 08-25 09:51
PROVIDERS: ADMIT Internal Medicine; ATTEND Internal Medicine
PROC: 5A1955Z Respiratory Ventilation, Greater than 96 Consecutive Hours (ICD-10-PCS; principal; 2018-08-22)
PROC: 30233N1 Transfusion of Nonautologous Red Blood Cells into Peripheral Vein, Percutaneous Approach (ICD-10-PCS; 2018-08-22)
PROC: 02H633Z Insertion of Infusion Device into Right Atrium, Percutaneous Approach (ICD-10-PCS; 2018-08-22)
PROC: 5A1D70Z Performance of Urinary Filtration, Intermittent, Less than 6 Hours Per Day (ICD-10-PCS; 2018-08-23)
PROC: 0JH60XZ Insertion of Tunneled Vascular Access Device into Chest Subcutaneous Tissue and Fascia, Open Approach (ICD-10-PCS; 2018-08-28)
PROC: 02H633Z Insertion of Infusion Device into Right Atrium, Percutaneous Approach (ICD-10-PCS; 2018-08-28)
DX: T82.41XA Breakdown (mechanical) of vascular dialysis catheter, initial encounter (principal); N18.6 End stage renal disease; J96.10 Chronic respiratory failure, unspecified whether with hypoxia or hypercapnia; G93.49 Other encephalopathy; I12.0 Hypertensive chronic kidney disease with stage 5 chronic kidney disease or end stage renal disease; Z99.11 Dependence on respirator [ventilator] status; R65.10 Systemic inflammatory response syndrome (SIRS) of non-infectious origin without acute organ dysfunction; Z99.2 Dependence on renal dialysis; Z93.0 Tracheostomy status; D63.1 Anemia in chronic kidney disease; Z79.899 Other long term (current) drug therapy; D72.829 Elevated white blood cell count, unspecified; B95.7 Other staphylococcus as the cause of diseases classified elsewhere; Z22.322 Carrier or suspected carrier of Methicillin resistant Staphylococcus aureus
CPT/HCPCS: 36415; 36430; 36556; 36561; 76942; 80048; 80053; 80202; 83690; 84484; 85025; 85049; 85610; 85670; 85730; 86706; 86850; 86900; 86901; 86920; 87040; 87081; 87340; 90935; 93005; 94002; 94003; G0378; J1644; J3370; P9016; Q4081